=== PATIENT | female | born 1930 | race American Indian/Alaskan Native ===

== ENCOUNTER 2017-05-07 15:46 | Inpatient (IN) | payer MEDICARE ==
[2017-05-07] MEDS ORDERED: NACL 0.9% 500 ML 500 ML IV ONE (17:35)
[2017-05-07] MEDS ORDERED: ATIVAN ONE (17:42)
[2017-05-07] MEDS ORDERED: ATIVAN IV ONE ×2 (17:50→17:52)
[2017-05-07] MEDS ORDERED: VANCOMYCIN PHARMACY TO DOSE IV SCH (18:00)
[2017-05-07 18:16] LABS: Basophils % (Auto) 0.3 % (0.0-1.8); Mean Corpuscular HGB Conc 30 % (30-34); Mean Corpuscular Hemoglobin 27 pg (28-32); Mean Corpuscular Volume 92 fl (79-97); Platelet Count 125 K/mm3 (140-440); Red Blood Count 5.34 M/mm3 (3.65-5.03); Red Cell Distribution Width 17.5 % (13.2-15.2); White Blood Count 13.3 K/mm3 (4.5-11.0)
[2017-05-07 18:20] LABS: Hematocrit 49.2 % (30.3-42.9); Hemoglobin 14.5 gm/dl (10.1-14.3)
[2017-05-07 18:26] LABS: INR 1.21 (0.87-1.13)
[2017-05-07 18:27] LABS: Creatine Kinase MB 6.8 ng/mL (0.0-4.0)
[2017-05-07 18:27] LABS: Partial Thromboplastin Time 35.6 Sec. (24.2-36.6)
[2017-05-07 18:30] LABS: Alanine Aminotransferase 27 units/L (7-56); Albumin 3.4 g/dL (3.9-5); Albumin/Globulin Ratio 1.1 %; Alkaline Phosphatase 99 units/L (35-129); BUN/Creatinine Ratio 27; Blood Urea Nitrogen 72 mg/dL (7-17); Calcium 7.9 mg/dL (8.4-10.2); Carbon Dioxide 22 mmol/L (22-30); Creatine Kinase 1235 units/L (30-135); Glucose 124 mg/dL (65-100); Potassium 4.6 mmol/L (3.6-5.0); Total Protein 6.4 g/dL (6.3-8.2)
[2017-05-07] MEDS ORDERED: NACL 0.9% 1000 ML 1,000 ML ONE (18:33)
[2017-05-07] MEDS ORDERED: XYLOCAINE 1% 20 mL ONE (18:33)
[2017-05-07 18:36] LABS: Bilirubin,Direct < 0.2 mg/dL (0-0.2); Bilirubin,Indirect 0.3 mg/dL
[2017-05-07 18:44] LABS: Cholesterol 158 mg/dL (50-199); HDL Cholesterol 29 mg/dL (40-59); LDL Cholesterol,Direct 87 mg/dL (50-130); Triglycerides 213 mg/dL (2-149)
[2017-05-07] MEDS ORDERED: NACL 0.9% 1000 ML 1,000 ML IV ONE ×3 (18:50→21:13)
[2017-05-07 18:55] LABS: Anion Gap 23 mmol/L
--- NOTE | 2017-05-07 18:57 | Emergency Department Report ---
ED General Adult HPI - General Chief complaint: Dyspnea/Respdistress Stated complaint: YAIMA,DECREASED APPETITE Time Seen by Provider: 05/07/17 17:49 Source: EMS Mode of arrival: Stretcher Limitations: Altered Mental Status - History of Present Illness Initial comments: The patient was encountered by me shortly after the medics placed her in the gurney and the nurses summoned me. The medics have left without giving me a report. The report I have from nursing is that the patient was found poorly responsive. [facility] staff attempted to get a pulse oximetry and could not. Therefore they called EMS. Reported blood pressure per EMS was normotensive. The glucose was normal and the pulse oximetry was difficult to obtain. Apparently no one noted how cold the patient's extremities were. -: unknown Severity scale (0 -10): 0 - Related Data Home Medications Medication Instructions Recorded Confirmed Last Taken Acetaminophen/Diphenhydramine 1 each PO Q8H PRN 05/07/17 05/07/17 Unknown [Tylenol Pm Ex-Strength Caplet] Aspirin [Aspirin BABY CHEW TAB] 81 mg PO QDAY 05/07/17 05/07/17 Unknown Donepezil [Aricept] 10 mg PO QDAY 05/07/17 05/07/17 Unknown Hydrocortisone 1% [Hydrocortisone 1 applicatio TP TID 05/07/17 05/07/17 Unknown 1% CREAM] Multivit with Minerals No.55 1 each PO QDAY 05/07/17 05/07/17 Unknown [Centrum Flavor Burst Adult] Potassium Chloride [K-Dur] 10 meq PO QDAY 05/07/17 05/07/17 Unknown Allergies Allergy/AdvReac Type Severity Reaction Status Date / Time No Known Allergies Allergy Unverified 05/07/17 18:15 ED Review of Systems ROS: Stated complaint: YAIMA,DECREASED APPETITE Other details as noted in HPI Comment: Unobtainable due to pts medical conditions ED Past Medical Hx - Past Medical History Hx Psychiatric Treatment: (alzheimers) Additional medical history: Full code status - Social History Other Social History: [facility] - Medications Home Medications: Home Medications Medication Instructions Recorded Confirmed Last Taken Type Acetaminophen/Diphenhydramine 1 each PO Q8H PRN 05/07/17 05/07/17 Unknown History [Tylenol Pm Ex-Strength Caplet] Aspirin [Aspirin BABY CHEW TAB] 81 mg PO QDAY 05/07/17 05/07/17 Unknown History Donepezil [Aricept] 10 mg PO QDAY 05/07/17 05/07/17 Unknown History Hydrocortisone 1% [Hydrocortisone 1 applicatio TP TID 05/07/17 05/07/17 Unknown History 1% CREAM] Multivit with Minerals No.55 1 each PO QDAY 05/07/17 05/07/17 Unknown History [Centrum Flavor Burst Adult] Potassium Chloride [K-Dur] 10 meq PO QDAY 05/07/17 05/07/17 Unknown History ED Physical Exam - General Limitations: Altered Mental Status (non-verbal) General appearance: lethargic, obese - Head Head exam: Present: atraumatic - Eye Eye exam: Present: PERRL, EOMI. Absent: scleral icterus - ENT ENT exam: Present: mucous membranes dry - Neck Neck exam: Absent: tenderness, meningismus - Respiratory Respiratory exam: Present: normal lung sounds bilaterally. Absent: respiratory distress - Cardiovascular Cardiovascular Exam: Present: regular rate, normal rhythm. Absent: systolic murmur, diastolic murmur, rubs, gallop - GI/Abdominal GI/Abdominal exam: Present: soft, normal bowel sounds. Absent: distended, tenderness, guarding, rebound, rigid - Neurological Exam Neurological exam: Present: other (patient appears to be moving all extremities but she is obtunded and the exam is limited.) - Psychiatric Psychiatric exam: Present: flat affect - Skin Skin exam: Present: other (extremities are quite cool and vasoconstricted feet are particularly cool and somewhat cyanotic.) ED Course Vital Signs 05/07/17 05/07/17 17:17 18:41 Respiratory 12 Rate Blood Pressure 89/39 O2 Sat by Pulse 98 Oximetry - Reevaluation(s) Reevaluation #1: The patient was given a fluid bolus. She appeared to be perking up with IV fluid. A rectal temp was ordered. I am expecting her to be hypothermic. She is presumed to be septic. She was given empiric antibiotics to include Zosyn and Vanco. Her electrolytes were extremely abnormal. A repeat BMP is ordered. However the labs were drawn from a central line and the patient is quite volume depleted. I could certainly believe she is hyper knee treatment. We will see what her labs are on repeat. She will be admitted to the ICU. She will be given volume bolus of 2 L for presumed sepsis. A central line was placed shortly after the patient's arrival without difficulty. I'm still waiting her rectal temperature. She'll be placed on a hypothermia blanket as appropriate. Dr. Peralta the hospitalist is already seeing the patient. Consult to Dr. Woodruff the cloth shearer. On reexamination the patient's feet have warmed up and improved in color. Her blood pressure is 95/60. The second liter is in progress. She has a central line for pressors as necessary. She is maintaining her airway fine. Arterial blood gas has been ordered. 05/07/17 19:04 05/07/17 19:08 - Central Line Placement Right Femoral Consent Obtained: emergent situation Time Out Performed: No Patient Placed on Monitor/Pulse Ox: Yes Prep: mask, gown, gloves, other Central Line Prep: Chlorhexidine scrub Local Anesthesia Used: Lidocaine 1% Ultrasound Used for Placement: No Central Line Lumen Inserted: triple (placed without difficulty right femoral vein) Bloods Obtained for Lab: Yes Central Line Position: good blood return (dark red nonpulsatile), all ports aspirated, flus, sutured in place with 3-0, other Dressing Applied: Tegaderm Patient Tolerated Procedure: well ED Medical Decision Making - Lab Data Result diagrams: 05/07/17 17:35 05/07/17 17:50 Laboratory Results - last 24 hr 05/07/17 05/07/17 05/07/17 17:35 17:35 17:50 WBC 13.3 H RBC 5.34 H Hgb 14.5 H Hct 49.2 H MCV 92 MCH 27 L MCHC 30 RDW 17.5 H Plt Count 125 L Lymph % (Auto) 8.0 L Nelson % (Auto) 4.5 Eos % (Auto) 0.0 Baso % (Auto) 0.3 Lymph # 1.1 L Nelson # 0.6 Eos # 0.0 Baso # 0.0 Seg Neutrophils % 87.2 H Seg Neutrophils # 11.6 H PT 16.0 H INR 1.21 H APTT 35.6 Potassium 4.6 Carbon Dioxide 22 BUN 72 H Creatinine 2.7 H Estimated GFR 20 BUN/Creatinine Ratio 27 Glucose 124 H Calcium 7.9 L Magnesium 3.60 H Total Bilirubin 0.50 Direct Bilirubin < 0.2 Indirect Bilirubin 0.3 AST 29 ALT 27 Alkaline Phosphatase 99 Total Creatine Kinase 1235 H CK-MB (CK-2) 6.8 H CK-MB (CK-2) Rel Index 0.5 Troponin T 0.049 H NT-Pro-B Natriuret Pep 237.5 Total Protein 6.4 Albumin 3.4 L Albumin/Globulin Ratio 1.1 Triglycerides 213 H Cholesterol 158 LDL Cholesterol Direct 87 HDL Cholesterol 29 L Cholesterol/HDL Ratio 5.44 NA >179 CL >139, AG >123 lactic acid 3.4 - EKG Data -: EKG Interpreted by Me EKG shows normal: sinus rhythm Rate: normal - EKG Data Interpretation: other (left axis deviation and nonspecific ST-T wave changes.) - Radiology Data interpreted by me: Chest x-ray with some atelectasis right lower lobe. Otherwise no substantial findings Critical Care Time: Yes Critical care time in (mins) excluding proc time.: 75 Critical care attestation.: If time is entered above; I have spent that time in minutes in the direct care of this critically ill patient, excluding procedure time. ED Disposition Clinical Impression: Septic shock, Prerenal azotemia, Acute renal injury, Thrombocytopenia, Hypernatremia Rhabdomyolysis Qualifiers: Rhabdomyolysis type: non-traumatic Qualified Code(s): M62.82 - Rhabdomyolysis Disposition: DC-09 OP ADMIT IP TO THIS HOSP Is pt being admited?: Yes Does the pt Need Aspirin: Yes Condition: Stable Referrals: PRIMARY CARE, [Primary Care Provider] - 3-5 Days Time of Disposition: 19:13
[2017-05-07] MEDS ORDERED: ZOSYN/NS 4.5GM/100ML 4.5 GM/100 ML VIAL IV ONE (18:58)
[2017-05-07] MEDS ORDERED: ZOSYN/NS 4.5GM/100ML 4.5 GM/100 ML VIAL IV SCH (19:00)
[2017-05-07 19:05] LABS: Sodium > 179 mmol/L (137-145)
[2017-05-07 19:06] LABS: Chloride > 139 mmol/L (98-107)
--- NOTE | 2017-05-07 19:09 | History and Physical Report ---
History of Present Illness Date of examination: 05/07/17 Chief complaint: Altered Mental Status History of present illness: 87-year-old -Martiniquais female is brought via EMS from [facility] for altered mental status. Patient is noncommunicative and was in the room, the history is obtained from ER medical staff and chart review. Patient was hypotensive and hypothermic and central line was placed, started for the management of severe sepsis. Patient's sodium and chloride elevated. Review of systems couldn't be obtained because of mental status. Past History Past Medical History: other (couldn't obtain because of altered mental status, could be her baseline) Past Surgical History: Other (couldn't obtain because of altered mental status, could be her baseline) Social history: other (couldn't obtain because of altered mental status, could be her baseline) Family history: other (couldn't obtain because of altered mental status, could be her baseline) Medications and Allergies Allergies Allergy/AdvReac Type Severity Reaction Status Date / Time No Known Allergies Allergy Unverified 05/07/17 18:15 Home Medications Medication Instructions Recorded Confirmed Last Taken Type Acetaminophen/Diphenhydramine 1 each PO Q8H PRN 05/07/17 05/07/17 Unknown History [Tylenol Pm Ex-Strength Caplet] Aspirin [Aspirin BABY CHEW TAB] 81 mg PO QDAY 05/07/17 05/07/17 Unknown History Donepezil [Aricept] 10 mg PO QDAY 05/07/17 05/07/17 Unknown History Hydrocortisone 1% [Hydrocortisone 1 applicatio TP TID 05/07/17 05/07/17 Unknown History 1% CREAM] Multivit with Minerals No.55 1 each PO QDAY 05/07/17 05/07/17 Unknown History [Centrum Flavor Burst Adult] Potassium Chloride [K-Dur] 10 meq PO QDAY 05/07/17 05/07/17 Unknown History Active Meds: Active Medications Piperacillin Sod/Tazobactam Sod (Zosyn/Ns 4.5gm/100ml) 4.5 gm in 100 mls @ 200 mls/hr IV ONCE.ED ONE Stop: 05/07/17 19:27 Sodium Chloride (Nacl 0.9% 1000 Ml) 1,000 mls @ 999 mls/hr IV BOLUS ONE Stop: 05/07/17 19:50 Piperacillin Sod/Tazobactam Sod (Zosyn/Ns 4.5gm/100ml) 4.5 gm in 100 mls @ 200 mls/hr IV Q6HR CAMI PRN Reason: Protocol Vancomycin HCl (Vancomycin Pharmacy To Dose) 1 each IV PKCONSULT CAMI PRN Reason: Protocol Review of Systems ROS unobtainable: due to mental status (couldn't obtain because of altered mental status, could be her baseline) Exam - Physical Exam Narrative exam: Not in cardiopulmonary distress. The patient is obese. Vital signs as documented. Head exam is unremarkable. No scleral icterus . Neck is without jugular venous distension, thyromegaly, or carotid bruits. Lungs are clear to auscultation. Cardiac exam reveals regular rate and Rhythm. First and second heart sounds normal. No murmurs, rubs or gallops. Abdominal exam reveals normal bowel sounds, no masses, no organomegaly and no aortic enlargement. Extremities are nonedematous and both femoral and pedal pulses are normal. HEALTH SCIENCE WRITER: Patient is not communicative, could be her baseline dementia. - Constitutional Vitals: Temp Pulse Resp BP Pulse Ox 12 89/39 98 05/07/17 18:41 05/07/17 17:17 05/07/17 18:41 Results - Labs CBC & Chem 7: 05/07/17 17:35 05/07/17 17:50 Labs: Laboratory Last Values WBC 13.3 K/mm3 (4.5-11.0) H 05/07/17 17:35 RBC 5.34 M/mm3 (3.65-5.03) H 05/07/17 17:35 Hgb 14.5 gm/dl (10.1-14.3) H 05/07/17 17:35 Hct 49.2 % (30.3-42.9) H 05/07/17 17:35 MCV 92 fl (79-97) 05/07/17 17:35 MCH 27 pg (28-32) L 05/07/17 17:35 MCHC 30 % (30-34) 05/07/17 17:35 RDW 17.5 % (13.2-15.2) H 05/07/17 17:35 Plt Count 125 K/mm3 (140-440) L 05/07/17 17:35 Lymph % (Auto) 8.0 % (13.4-35.0) L 05/07/17 17:35 Wallace % (Auto) 4.5 % (0.0-7.3) 05/07/17 17:35 Eos % (Auto) 0.0 % (0.0-4.3) 05/07/17 17:35 Baso % (Auto) 0.3 % (0.0-1.8) 05/07/17 17:35 Lymph # 1.1 K/mm3 (1.2-5.4) L 05/07/17 17:35 Wallace # 0.6 K/mm3 (0.0-0.8) 05/07/17 17:35 Eos # 0.0 K/mm3 (0.0-0.4) 05/07/17 17:35 Baso # 0.0 K/mm3 (0.0-0.1) 05/07/17 17:35 Seg Neutrophils % 87.2 % (40.0-70.0) H 05/07/17 17:35 Seg Neutrophils # 11.6 K/mm3 (1.8-7.7) H 05/07/17 17:35 PT 16.0 Sec. (12.2-14.9) H 05/07/17 17:35 INR 1.21 (0.87-1.13) H 05/07/17 17:35 APTT 35.6 Sec. (24.2-36.6) 05/07/17 17:35 Sodium > 179 mmol/L (137-145) H* 05/07/17 17:50 Potassium 4.6 mmol/L (3.6-5.0) 05/07/17 17:50 Chloride > 139 mmol/L (98-107) H 05/07/17 17:50 Carbon Dioxide 22 mmol/L (22-30) 05/07/17 17:50 Anion Gap 23 mmol/L 05/07/17 17:50 BUN 72 mg/dL (7-17) H 05/07/17 17:50 Creatinine 2.7 mg/dL (0.7-1.2) H 05/07/17 17:50 Estimated GFR 20 ml/min 05/07/17 17:50 BUN/Creatinine Ratio 27 % 05/07/17 17:50 Glucose 124 mg/dL (65-100) H 05/07/17 17:50 Calcium 7.9 mg/dL (8.4-10.2) L 05/07/17 17:50 Magnesium 3.60 mg/dL (1.7-2.3) H 05/07/17 17:50 Total Bilirubin 0.50 mg/dL (0.1-1.2) 05/07/17 17:50 Direct Bilirubin < 0.2 mg/dL (0-0.2) 05/07/17 17:50 Indirect Bilirubin 0.3 mg/dL 05/07/17 17:50 AST 29 units/L (5-40) 05/07/17 17:50 ALT 27 units/L (7-56) 05/07/17 17:50 Alkaline Phosphatase 99 units/L (35-129) 05/07/17 17:50 Total Creatine Kinase 1235 units/L (30-135) H 05/07/17 17:50 CK-MB (CK-2) 6.8 ng/mL (0.0-4.0) H 05/07/17 17:50 CK-MB (CK-2) Rel Index 0.5 (0-4) 05/07/17 17:50 Troponin T 0.049 ng/mL (0.00-0.029) H 05/07/17 17:50 NT-Pro-B Natriuret Pep 237.5 pg/mL (0-900) 05/07/17 17:50 Total Protein 6.4 g/dL (6.3-8.2) 05/07/17 17:50 Albumin 3.4 g/dL (3.9-5) L 05/07/17 17:50 Albumin/Globulin Ratio 1.1 % 05/07/17 17:50 Triglycerides 213 mg/dL (2-149) H 05/07/17 17:50 Cholesterol 158 mg/dL (50-199) 05/07/17 17:50 LDL Cholesterol Direct 87 mg/dL (50-130) 05/07/17 17:50 HDL Cholesterol 29 mg/dL (40-59) L 05/07/17 17:50 Cholesterol/HDL Ratio 5.44 % 05/07/17 17:50 Assessment and Plan Assessment and plan: 89 year old female came from [facility] for altered mental status, no history obtained Altered mental status Severe sepsis Hypotension Hypernatremia, hyperchloremia Severe Dehydration Dementia Acute renal failure, no baseline - Intubated and was placed and patient was given IV fluids and IV antibiotics according to sepsis protocol - Blood culture was obtained, lactic acid result pending - Patient able to take care of her airways - We will check BMP every 6 hours to monitor hypernatremia and hyperchloremia - Salesperson Neckties consulted DVT prophylaxis - on heparin Disposition - Admit to ICU Advance Directives: Yes VTE prophylaxis?: Chemical Plan of care discussed with patient/family: Yes
[2017-05-07 20:12] LABS: Bacteria,Urine 4+ /HPF (Negative); Bilirubin,Urine NEG (Negative); Blood,Urine SM (Negative); Ketones,Urine NEG (Negative); Leukocyte Esterase,Urine MOD (Negative); Mucus,Urine 3+ /HPF; Nitrite,Urine NEG (Negative); Urobilinogen,Urine < 2.0 mg/dL (<2.0)
[2017-05-07 20:19] LABS: RBC,Urine > 182.0 /HPF (0.0-6.0); WBC,Urine > 182.0 /HPF (0.0-6.0)
[2017-05-07] MEDS ORDERED: LEVOPHED DRIP 4 MG/NS 250 ML 4 MG/250 ML BAG IV SCH (21:00)
[2017-05-07 21:03] LABS: Chloride TNR mmol/L (98-107)
[2017-05-07 21:04] LABS: Sodium TNR mmol/L (137-145)
[2017-05-07 21:07] LABS: Anion Gap TNR mmol/L
[2017-05-07 21:14] LABS: Potassium TNR mmol/L (3.6-5.0)
[2017-05-07 21:15] LABS: Blood Urea Nitrogen TNR mg/dL (7-17); Carbon Dioxide TNR mmol/L (22-30)
[2017-05-07 21:17] LABS: BUN/Creatinine Ratio TNR; Glucose TNR mg/dL (65-100)
[2017-05-07 21:18] LABS: Calcium TNR mg/dL (8.4-10.2)
[2017-05-07] MEDS ORDERED: VANCOMYCIN 2,000 MG in NACL 0.9% 500 ML 500 ML IV ONE (22:00)
[2017-05-07] MEDS ORDERED: NACL 0.9% 1000 ML 1,000 ML IV SCH (22:00)
[2017-05-07] MEDS: ZOSYN/NS 2.25 GM/50ML 2.25 GM/50 ML BAG IV SCH (22:29)
[2017-05-07] MEDS: HEPARIN SUB-Q SCH (22:40)
[2017-05-07 23:07] LABS: Sodium TNR mmol/L (137-145)
[2017-05-07 23:10] LABS: Anion Gap TNR mmol/L; Blood Urea Nitrogen TNR mg/dL (7-17); Carbon Dioxide TNR mmol/L (22-30); Chloride TNR mmol/L (98-107); Potassium TNR mmol/L (3.6-5.0)
[2017-05-07 23:11] LABS: BUN/Creatinine Ratio TNR; Glucose TNR mg/dL (65-100)
[2017-05-07 23:12] LABS: Calcium TNR mg/dL (8.4-10.2)
[2017-05-08] MEDS ORDERED: D5/0.45NS 1,000 ML IV SCH (01:00)
[2017-05-08] MEDS: D5W 1,000 ML IV SCH ×3 (01:20→18:14)
[2017-05-08 01:22] LABS: ISTAT Base Excess -7; ISTAT DEVICE 0; ISTAT HCO3 19.6; ISTAT PH 7.308 (7.35-7.45); ISTAT PO2 87 (80-105); ISTAT SO2 96; ISTAT TCO2 21
[2017-05-08 05:35] LABS: Basophils % (Auto) 0.4 % (0.0-1.8); Eosinophils % (Auto) 0.2 % (0.0-4.3); Mean Corpuscular HGB Conc 29 % (30-34); Mean Corpuscular Hemoglobin 27 pg (28-32); Mean Corpuscular Volume 92 fl (79-97); Red Blood Count 4.69 M/mm3 (3.65-5.03); Red Cell Distribution Width 17.5 % (13.2-15.2); White Blood Count 12.5 K/mm3 (4.5-11.0)
[2017-05-08 05:49] LABS: Hematocrit 43.2 % (30.3-42.9); Hemoglobin 12.7 gm/dl (10.1-14.3); Platelet Count 99 K/mm3 (140-440)
[2017-05-08 05:51] LABS: INR 1.28 (0.87-1.13)
[2017-05-08 05:57] LABS: Alanine Aminotransferase 24 units/L (7-56); Albumin/Globulin Ratio 1.2 %; Alkaline Phosphatase 86 units/L (35-129); Amylase 26 units/L (27-131); BUN/Creatinine Ratio 26; Blood Urea Nitrogen 58 mg/dL (7-17); Calcium 6.7 mg/dL (8.4-10.2); Carbon Dioxide 20 mmol/L (22-30); Glucose 162 mg/dL (65-100); Potassium 3.7 mmol/L (3.6-5.0); Total Protein 5.5 g/dL (6.3-8.2)
[2017-05-08] MEDS: ZOSYN/NS 2.25 GM/50ML 2.25 GM/50 ML BAG IV SCH ×3 (06:05→22:46)
[2017-05-08 06:34] LABS: Sodium > 179 mmol/L (137-145)
[2017-05-08 06:35] LABS: Anion Gap 24 mmol/L; Chloride > 139 mmol/L (98-107)
--- NOTE | 2017-05-08 08:06 | XRay Report ---
Chest 2 views. History: Cough and fever. Findings: There is suboptimal inspiration. The heart and pulmonary vessels are unremarkable for age. Minimal discoid atelectasis is seen in the right lower lobe; otherwise, lungs are clear. There is no pleural fluid. Impression: Minimal right lower lobe discoid atelectasis no other significant findings.
[2017-05-08] MEDS: HEPARIN SUB-Q SCH ×2 (09:34→22:23)
--- NOTE | 2017-05-08 10:04 | Consultation ---
History of Present Illness - Reason for Consult Consult date: 05/08/17 Hypernatremia/Hypotension/Severe Volume Depletion Requesting physician: JENNIFER MOORE - History of Present Illness 87 y/o female, [facility] resident, who presented to the ED with altered mental state. We have no idea of what her baseline mental state is. She was hypotensive on arrival. Central line placed and started on pressors. Labs came back and patient is severely volume deplete. Free water defict is around 10 liters. No family currently at bedside. Patient is awake, but not responsive. Does not follow commands. She was started on D5W and has Chemistries being drawn every 6 hours. She has a urine analysis that is dirty. She was started on Vanc and Zosyn empirically. Past History Past Medical History: other (couldn't obtain because of altered mental status, could be her baseline) Past Surgical History: Other (couldn't obtain because of altered mental status, could be her baseline) Social history: other (couldn't obtain because of altered mental status, could be her baseline) Family history: other (couldn't obtain because of altered mental status, could be her baseline) Medications and Allergies Allergies Allergy/AdvReac Type Severity Reaction Status Date / Time No Known Allergies Allergy Unverified 05/07/17 18:15 Home Medications Medication Instructions Recorded Confirmed Last Taken Type Acetaminophen/Diphenhydramine 1 each PO Q8H PRN 05/07/17 05/07/17 Unknown History [Tylenol Pm Ex-Strength Caplet] Aspirin [Aspirin BABY CHEW TAB] 81 mg PO QDAY 05/07/17 05/07/17 Unknown History Donepezil [Aricept] 10 mg PO QDAY 05/07/17 05/07/17 Unknown History Hydrocortisone 1% [Hydrocortisone 1 applicatio TP TID 05/07/17 05/07/17 Unknown History 1% CREAM] Multivit with Minerals No.55 1 each PO QDAY 05/07/17 05/07/17 Unknown History [Centrum Flavor Burst Adult] Potassium Chloride [K-Dur] 10 meq PO QDAY 05/07/17 05/07/17 Unknown History Active Meds: Active Medications Heparin Sodium (Porcine) (Heparin) 5,000 unit SUB-Q BID CAMI Last Admin: 05/08/17 09:34 Dose: 5,000 unit Norepinephrine (Levophed Drip 4 Mg/Ns 250 Ml) 4 mg in 250 mls @ 7.5 mls/hr IV TITR CAMI; 2 MCG/MIN PRN Reason: Protocol Last Titration: 05/08/17 02:24 Dose: 4 mcg/min, 15 mls/hr Piperacillin Sod/Tazobactam Sod (Zosyn/Ns 2.25 Gm/50ml) 2.25 gm in 50 mls @ 100 mls/hr IV Q8HR CAMI Last Admin: 05/08/17 06:05 Dose: 100 mls/hr Dextrose (D5w) 1,000 mls @ 100 mls/hr IV DIRECT CAMI Last Admin: 05/08/17 01:20 Dose: 100 mls/hr Review of Systems ROS unobtainable: due to mental status Exam - Constitutional Vitals: Temp Pulse Resp BP Pulse Ox 99.3 F 69 14 101/53 98 05/08/17 08:00 05/08/17 09:00 05/08/17 09:00 05/08/17 09:00 05/08/17 09:00 General appearance: Present: no acute distress, obese - Neck Neck: Present: supple, normal ROM - Respiratory Respiratory effort: normal Respiratory: bilateral: CTA - Cardiovascular Rhythm: regular Heart Sounds: Present: S1 & S2 - Extremities Extremities: no ischemia - Abdominal General gastrointestinal: Present: soft, non-tender, normal bowel sounds - Rectal Rectal Exam: deferred - Psychiatric Psychiatric: other (unable to assess) - Neurologic Neurologic: other (unable to assess) Results - Labs CBC & Chem 7: 05/08/17 05:18 05/08/17 09:30 Labs: Abnormal lab results 05/07/17 05/07/17 05/07/17 Range/Units 17:35 17:35 17:50 WBC 13.3 H (4.5-11.0) K/mm3 RBC 5.34 H (3.65-5.03) M/mm3 Hgb 14.5 H (10.1-14.3) gm/dl Hct 49.2 H (30.3-42.9) % MCH 27 L (28-32) pg MCHC (30-34) % RDW 17.5 H (13.2-15.2) % Plt Count 125 L (140-440) K/mm3 Lymph % (Auto) 8.0 L (13.4-35.0) % Lymph # 1.1 L (1.2-5.4) K/mm3 Seg Neutrophils % 87.2 H (40.0-70.0) % Seg Neutrophils # 11.6 H (1.8-7.7) K/mm3 PT 16.0 H (12.2-14.9) Sec. INR 1.21 H (0.87-1.13) POC ABG pH (7.35-7.45) Sodium > 179 H* (137-145) mmol/L Chloride > 139 H (98-107) mmol/L Carbon Dioxide (22-30) mmol/L BUN 72 H (7-17) mg/dL Creatinine 2.7 H (0.7-1.2) mg/dL Glucose 124 H (65-100) mg/dL POC Glucose (70-105) Lactic Acid (0.7-2.0) mmol/L Calcium 7.9 L (8.4-10.2) mg/dL Magnesium 3.60 H (1.7-2.3) mg/dL AST (5-40) units/L Total Creatine Kinase 1235 H (30-135) units/L CK-MB (CK-2) 6.8 H (0.0-4.0) ng/mL Troponin T 0.049 H (0.00-0.029) ng/mL Total Protein (6.3-8.2) g/dL Albumin 3.4 L (3.9-5) g/dL Triglycerides 213 H (2-149) mg/dL HDL Cholesterol 29 L (40-59) mg/dL Amylase (27-131) units/L Urine WBC (Auto) (0.0-6.0) /HPF 05/07/17 05/07/17 05/07/17 Range/Units 19:18 20:59 23:40 WBC (4.5-11.0) K/mm3 RBC (3.65-5.03) M/mm3 Hgb (10.1-14.3) gm/dl Hct (30.3-42.9) % MCH (28-32) pg MCHC (30-34) % RDW (13.2-15.2) % Plt Count (140-440) K/mm3 Lymph % (Auto) (13.4-35.0) % Lymph # (1.2-5.4) K/mm3 Seg Neutrophils % (40.0-70.0) % Seg Neutrophils # (1.8-7.7) K/mm3 PT (12.2-14.9) Sec. INR (0.87-1.13) POC ABG pH (7.35-7.45) Sodium > 179 H* (137-145) mmol/L Chloride (98-107) mmol/L Carbon Dioxide (22-30) mmol/L BUN (7-17) mg/dL Creatinine (0.7-1.2) mg/dL Glucose (65-100) mg/dL POC Glucose (70-105) Lactic Acid 2.20 H* (0.7-2.0) mmol/L Calcium (8.4-10.2) mg/dL Magnesium (1.7-2.3) mg/dL AST (5-40) units/L Total Creatine Kinase (30-135) units/L CK-MB (CK-2) (0.0-4.0) ng/mL Troponin T (0.00-0.029) ng/mL Total Protein (6.3-8.2) g/dL Albumin (3.9-5) g/dL Triglycerides (2-149) mg/dL HDL Cholesterol (40-59) mg/dL Amylase (27-131) units/L Urine WBC (Auto) > 182.0 H (0.0-6.0) /HPF 05/07/17 05/07/17 05/08/17 Range/Units 23:44 Unknown 01:19 WBC (4.5-11.0) K/mm3 RBC (3.65-5.03) M/mm3 Hgb (10.1-14.3) gm/dl Hct (30.3-42.9) % MCH (28-32) pg MCHC (30-34) % RDW (13.2-15.2) % Plt Count (140-440) K/mm3 Lymph % (Auto) (13.4-35.0) % Lymph # (1.2-5.4) K/mm3 Seg Neutrophils % (40.0-70.0) % Seg Neutrophils # (1.8-7.7) K/mm3 PT (12.2-14.9) Sec. INR (0.87-1.13) POC ABG pH 7.308 L (7.35-7.45) Sodium (137-145) mmol/L Chloride (98-107) mmol/L Carbon Dioxide (22-30) mmol/L BUN (7-17) mg/dL Creatinine (0.7-1.2) mg/dL Glucose (65-100) mg/dL POC Glucose 121 H (70-105) Lactic Acid 3.40 H* (0.7-2.0) mmol/L Calcium (8.4-10.2) mg/dL Magnesium (1.7-2.3) mg/dL AST (5-40) units/L Total Creatine Kinase (30-135) units/L CK-MB (CK-2) (0.0-4.0) ng/mL Troponin T (0.00-0.029) ng/mL Total Protein (6.3-8.2) g/dL Albumin (3.9-5) g/dL Triglycerides (2-149) mg/dL HDL Cholesterol (40-59) mg/dL Amylase (27-131) units/L Urine WBC (Auto) (0.0-6.0) /HPF 05/08/17 05/08/17 05/08/17 Range/Units 05:18 05:18 05:18 WBC 12.5 H (4.5-11.0) K/mm3 RBC (3.65-5.03) M/mm3 Hgb (10.1-14.3) gm/dl Hct 43.2 H D (30.3-42.9) % MCH 27 L (28-32) pg MCHC 29 L (30-34) % RDW 17.5 H (13.2-15.2) % Plt Count 99 L (140-440) K/mm3 Lymph % (Auto) 11.1 L (13.4-35.0) % Lymph # (1.2-5.4) K/mm3 Seg Neutrophils % 84.4 H (40.0-70.0) % Seg Neutrophils # 10.5 H (1.8-7.7) K/mm3 PT 16.7 H (12.2-14.9) Sec. INR 1.28 H (0.87-1.13) POC ABG pH (7.35-7.45) Sodium > 179 H* (137-145) mmol/L Chloride > 139 H (98-107) mmol/L Carbon Dioxide 20 L (22-30) mmol/L BUN 58 H (7-17) mg/dL Creatinine 2.2 H (0.7-1.2) mg/dL Glucose 162 H (65-100) mg/dL POC Glucose (70-105) Lactic Acid (0.7-2.0) mmol/L Calcium 6.7 L D (8.4-10.2) mg/dL Magnesium (1.7-2.3) mg/dL AST 42 H (5-40) units/L Total Creatine Kinase (30-135) units/L CK-MB (CK-2) (0.0-4.0) ng/mL Troponin T (0.00-0.029) ng/mL Total Protein 5.5 L (6.3-8.2) g/dL Albumin 3.0 L (3.9-5) g/dL Triglycerides (2-149) mg/dL HDL Cholesterol (40-59) mg/dL Amylase 26 L (27-131) units/L Urine WBC (Auto) (0.0-6.0) /HPF - Imaging and Cardiology Chest x-ray: report reviewed (clear) Assessment and Plan 87 y/o female with altered mental status, found to be severely volume deplete and possible urinary tract infection. 1. Increase rate on Free water 2. Will place dobb-kristian and start feeds with additional free water 3. q6hour chemistries and to follow up Na 4. Stop Vanc but continue Zosyn 5. Continue ICU monitoring, wean levophed for MAP's >65 CCt 31 minutes.
[2017-05-08 10:07] LABS: BUN/Creatinine Ratio 28; Blood Urea Nitrogen 56 mg/dL (7-17); Calcium 6.4 mg/dL (8.4-10.2); Carbon Dioxide 22 mmol/L (22-30); Glucose 167 mg/dL (65-100); Potassium 3.5 mmol/L (3.6-5.0)
[2017-05-08] MEDS ORDERED: PANCREAZE DR 10,500 UNIT FEEDTUBE PRN (10:50)
[2017-05-08] MEDS ORDERED: SODIUM BICARBONATE FEEDTUBE PRN (10:50)
[2017-05-08] MEDS ORDERED: SIMPLE SYRUP FEEDTUBE PRN ×2 (10:50)
[2017-05-08 11:00] LABS: Anion Gap 22 mmol/L; Chloride > 139 mmol/L (98-107); Sodium > 179 mmol/L (137-145)
--- NOTE | 2017-05-08 13:59 | XRay Report ---
KUB for Dobbhoff tube placement. Findings: A Dobbhoff tube terminates in the distal stomach. A right femoral catheter terminates at the level of the inferior right SI joint. There are no other significant findings.
[2017-05-08 16:18] LABS: BUN/Creatinine Ratio 26; Blood Urea Nitrogen 52 mg/dL (7-17); Calcium 6.4 mg/dL (8.4-10.2); Carbon Dioxide 21 mmol/L (22-30); Glucose 170 mg/dL (65-100); Potassium 3.3 mmol/L (3.6-5.0)
[2017-05-08 16:35] LABS: Anion Gap 17 mmol/L; Chloride > 139 mmol/L (98-107); Sodium 174 mmol/L (137-145)
[2017-05-08] MEDS: NOVOLOG SUB-Q SCH (17:32)
--- NOTE | 2017-05-08 18:08 | Progress Note ---
Assessment and Plan Assessment and plan: 87 year old female came from group home for altered mental status, no history obtained Acute metabolic encephalopathy Severe sepsis Hypotension Hypernatremia, hyperchloremia Severe Dehydration Dementia Acute renal failure, no baseline -Patient is on IV Zosyn -Urine culture shows gram-positive throats - Frequent check BMP for follow-up of hypernatremia, increase free water - Patient is on levophed DVT prophylaxis - on heparin Disposition -Continue ICU care History Interval history: Patient was seen and evaluated this morning, patient is non-communicative, could be her baseline. Hospitalist Physical - Physical exam Narrative exam: Not in cardiopulmonary distress. The patient is obese. Vital signs as documented. Head exam is unremarkable. No scleral icterus . Neck is without jugular venous distension, thyromegaly, or carotid bruits. Lungs are clear to auscultation. Cardiac exam reveals regular rate and Rhythm. First and second heart sounds normal. No murmurs, rubs or gallops. Abdominal exam reveals normal bowel sounds, no masses, no organomegaly and no aortic enlargement. Extremities are nonedematous and both femoral and pedal pulses are normal. 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 - Constitutional Vitals: Temp Pulse Resp BP Pulse Ox 97.3 F L 66 13 125/56 99 05/08/17 16:00 05/08/17 17:11 05/08/17 17:11 05/08/17 17:11 05/08/17 17:11 General appearance: Present: no acute distress, obese Results - Labs CBC & Chem 7: 05/08/17 05:18 05/08/17 15:45 Labs: Laboratory Last Values WBC 12.5 K/mm3 (4.5-11.0) H 05/08/17 05:18 RBC 4.69 M/mm3 (3.65-5.03) 05/08/17 05:18 Hgb 12.7 gm/dl (10.1-14.3) 05/08/17 05:18 Hct 43.2 % (30.3-42.9) H D 05/08/17 05:18 MCV 92 fl (79-97) 05/08/17 05:18 MCH 27 pg (28-32) L 05/08/17 05:18 MCHC 29 % (30-34) L 05/08/17 05:18 RDW 17.5 % (13.2-15.2) H 05/08/17 05:18 Plt Count 99 K/mm3 (140-440) L 05/08/17 05:18 Lymph % (Auto) 11.1 % (13.4-35.0) L 05/08/17 05:18 [place] % (Auto) 3.9 % (0.0-7.3) 05/08/17 05:18 Eos % (Auto) 0.2 % (0.0-4.3) 05/08/17 05:18 Baso % (Auto) 0.4 % (0.0-1.8) 05/08/17 05:18 Lymph # 1.4 K/mm3 (1.2-5.4) 05/08/17 05:18 [place] # 0.5 K/mm3 (0.0-0.8) 05/08/17 05:18 Eos # 0.0 K/mm3 (0.0-0.4) 05/08/17 05:18 Baso # 0.0 K/mm3 (0.0-0.1) 05/08/17 05:18 Seg Neutrophils % 84.4 % (40.0-70.0) H 05/08/17 05:18 Seg Neutrophils # 10.5 K/mm3 (1.8-7.7) H 05/08/17 05:18 PT 16.7 Sec. (12.2-14.9) H 05/08/17 05:18 INR 1.28 (0.87-1.13) H 05/08/17 05:18 APTT 35.6 Sec. (24.2-36.6) 05/07/17 17:35 POC ABG pH 7.308 (7.35-7.45) L 05/08/17 01:19 POC ABG pCO2 39.0 (35-45) 05/08/17 01:19 POC ABG pO2 87 (80-105) 05/08/17 01:19 POC ABG HCO3 19.6 05/08/17 01:19 POC ABG Total CO2 21 05/08/17 01:19 POC ABG O2 Sat 96 05/08/17 01:19 POC ABG Base Excess -7 05/08/17 01:19 FiO2 21 % 05/08/17 01:19 Sodium 174 mmol/L (137-145) H* 05/08/17 15:45 Potassium 3.3 mmol/L (3.6-5.0) L 05/08/17 15:45 Chloride > 139 mmol/L (98-107) H 05/08/17 15:45 Carbon Dioxide 21 mmol/L (22-30) L 05/08/17 15:45 Anion Gap 17 mmol/L 05/08/17 15:45 BUN 52 mg/dL (7-17) H 05/08/17 15:45 Creatinine 2.0 mg/dL (0.7-1.2) H 05/08/17 15:45 Estimated GFR 28 ml/min 05/08/17 15:45 BUN/Creatinine Ratio 26 % 05/08/17 15:45 Glucose 170 mg/dL (65-100) H 05/08/17 15:45 POC Glucose 151 (70-105) H 05/08/17 16:53 Lactic Acid 3.40 mmol/L (0.7-2.0) H* 05/07/17 Unknown Calcium 6.4 mg/dL (8.4-10.2) L 05/08/17 15:45 Magnesium 3.60 mg/dL (1.7-2.3) H 05/07/17 17:50 Total Bilirubin 0.50 mg/dL (0.1-1.2) 05/08/17 05:18 Direct Bilirubin < 0.2 mg/dL (0-0.2) 05/07/17 17:50 Indirect Bilirubin 0.3 mg/dL 05/07/17 17:50 AST 42 units/L (5-40) H 05/08/17 05:18 ALT 24 units/L (7-56) 05/08/17 05:18 Alkaline Phosphatase 86 units/L (35-129) 05/08/17 05:18 Total Creatine Kinase 1235 units/L (30-135) H 05/07/17 17:50 CK-MB (CK-2) 6.8 ng/mL (0.0-4.0) H 05/07/17 17:50 CK-MB (CK-2) Rel Index 0.5 (0-4) 05/07/17 17:50 Troponin T 0.049 ng/mL (0.00-0.029) H 05/07/17 17:50 NT-Pro-B Natriuret Pep 237.5 pg/mL (0-900) 05/07/17 17:50 Total Protein 5.5 g/dL (6.3-8.2) L 05/08/17 05:18 Albumin 3.0 g/dL (3.9-5) L 05/08/17 05:18 Albumin/Globulin Ratio 1.2 % 05/08/17 05:18 Triglycerides 213 mg/dL (2-149) H 05/07/17 17:50 Cholesterol 158 mg/dL (50-199) 05/07/17 17:50 LDL Cholesterol Direct 87 mg/dL (50-130) 05/07/17 17:50 HDL Cholesterol 29 mg/dL (40-59) L 05/07/17 17:50 Cholesterol/HDL Ratio 5.44 % 05/07/17 17:50 Amylase 26 units/L (27-131) L 05/08/17 05:18 Urine Color Straw (Yellow) 05/07/17 19:18 Urine Turbidity Turbid (Clear) 05/07/17 19:18 Urine pH 5.0 (5.0-7.0) 05/07/17 19:18 Ur Specific [place] 1.017 (1.003-1.030) 05/07/17 19:18 Urine Protein 100 mg/dl mg/dL (Negative) 05/07/17 19:18 Urine Glucose (UA) Neg mg/dL (Negative) 05/07/17 19:18 Urine Ketones Neg mg/dL (Negative) 05/07/17 19:18 Urine Blood Sm (Negative) 05/07/17 19:18 Urine Nitrite Neg (Negative) 05/07/17 19:18 Urine Bilirubin Neg (Negative) 05/07/17 19:18 Urine Urobilinogen < 2.0 mg/dL (<2.0) 05/07/17 19:18 Ur Leukocyte Esterase Mod (Negative) 05/07/17 19:18 Urine WBC (Auto) > 182.0 /HPF (0.0-6.0) H 05/07/17 19:18 Urine RBC (Auto) > 182.0 /HPF (0.0-6.0) 05/07/17 19:18 U Epithel Cells (Auto) 5.0 /HPF (0-13.0) 05/07/17 19:18 Urine Bacteria (Auto) 4+ /HPF (Negative) 05/07/17 19:18 Urine Mucus 3+ /HPF 05/07/17 19:18
[2017-05-08] MEDS ORDERED: POTASSIUM CHLORIDE FEEDTUBE ONE (18:30)
[2017-05-08 22:01] LABS: Calcium 6.3 mg/dL (8.4-10.2)
[2017-05-08 22:02] LABS: Chloride 134.8 mmol/L (98-107); Potassium 3.8 mmol/L (3.6-5.0)
[2017-05-09] MEDS: NOVOLOG SUB-Q SCH ×5 (00:59→17:50)
[2017-05-09] MEDS: D5W 1,000 ML IV SCH ×4 (01:36→21:39)
[2017-05-09 02:24] LABS: Calcium 6.3 mg/dL (8.4-10.2); Chloride 133.3 mmol/L (98-107); Potassium 3.4 mmol/L (3.6-5.0)
[2017-05-09 05:40] LABS: Basophils % (Auto) 0.3 % (0.0-1.8); Eosinophils % (Auto) 1.7 % (0.0-4.3); Hematocrit 35.2 % (30.3-42.9); Hemoglobin 10.9 gm/dl (10.1-14.3); Mean Corpuscular HGB Conc 31 % (30-34); Mean Corpuscular Hemoglobin 28 pg (28-32); Mean Corpuscular Volume 92 fl (79-97); Red Blood Count 3.84 M/mm3 (3.65-5.03); Red Cell Distribution Width 16.6 % (13.2-15.2); White Blood Count 9.6 K/mm3 (4.5-11.0)
[2017-05-09 05:44] LABS: Platelet Count 69 K/mm3 (140-440)
[2017-05-09] MEDS: ZOSYN/NS 2.25 GM/50ML 2.25 GM/50 ML BAG IV SCH (05:47)
[2017-05-09 06:03] LABS: Calcium 6.2 mg/dL (8.4-10.2); Chloride 132.7 mmol/L (98-107); Potassium 3.3 mmol/L (3.6-5.0)
[2017-05-09] MEDS ORDERED: POTASSIUM CHLORIDE FEEDTUBE ONE ×3 (09:00→23:00)
[2017-05-09] MEDS: HEPARIN SUB-Q SCH ×2 (09:33→21:41)
--- NOTE | 2017-05-09 10:52 | Progress Note ---
Assessment and Plan 87 y/o female with altered mental status, found to be severely volume deplete and possible urinary tract infection. 1. Continue Free water IV and via DH tube 2. continue tube feeds 3. q6hour chemistries and to follow up Na, need to continue until Na is closer to normal limits 4. Stop Vanc but continue Zosyn, UA is positive and culture has GNR CCt 31 minutes. Subjective Date of service: 05/09/17 Interval history: No acute events. Tolerated DH placement on yesterday and now tolerating tube feeds with free water. No family at bedside. Mental status is the same. Objective - Constitutional Vitals: Vital Signs - 12hr 05/08/17 05/08/17 05/08/17 22:51 23:01 23:11 Temperature Pulse Rate 64 67 66 Pulse Rate [ From Monitor] Pulse Rate [ Right Dorsalis Pedis] Respiratory 14 13 11 L Rate Blood Pressure 149/50 149/50 149/50 O2 Sat by Pulse 100 72 L 98 Oximetry 05/08/17 05/08/17 05/08/17 23:15 23:21 23:31 Temperature Pulse Rate 67 66 67 Pulse Rate [ From Monitor] Pulse Rate [ Right Dorsalis Pedis] Respiratory 15 14 15 Rate Blood Pressure 149/50 149/50 149/50 O2 Sat by Pulse 99 100 29 L Oximetry 05/08/17 05/08/17 05/09/17 23:41 23:51 00:00 Temperature 97.5 F L Pulse Rate 68 68 Pulse Rate [ From Monitor] Pulse Rate [ 70 Right Dorsalis Pedis] Respiratory 11 L 11 L Rate Blood Pressure 99/57 99/57 O2 Sat by Pulse 100 98 100 Oximetry 05/09/17 05/09/17 05/09/17 00:01 00:11 00:21 Temperature Pulse Rate 67 65 67 Pulse Rate [ From Monitor] Pulse Rate [ Right Dorsalis Pedis] Respiratory 13 14 11 L Rate Blood Pressure 114/55 114/55 114/55 O2 Sat by Pulse 99 100 100 Oximetry 05/09/17 05/09/17 05/09/17 00:31 00:41 00:44 Temperature 97.5 F L Pulse Rate 71 64 Pulse Rate [ From Monitor] Pulse Rate [ Right Dorsalis Pedis] Respiratory 12 13 Rate Blood Pressure 114/55 114/55 O2 Sat by Pulse 100 Oximetry 1205/09/17 05/09/17 00:51 01:01 01:11 Temperature Pulse Rate 70 66 66 Pulse Rate [ From Monitor] Pulse Rate [ Right Dorsalis Pedis] Respiratory 16 12 13 Rate Blood Pressure 114/55 78/44 78/44 O2 Sat by Pulse 100 100 100 Oximetry 05/09/17 05/09/17 05/09/17 01:21 01:31 01:41 Temperature Pulse Rate 68 63 62 Pulse Rate [ From Monitor] Pulse Rate [ Right Dorsalis Pedis] Respiratory 12 13 12 Rate Blood Pressure 78/44 78/44 100/40 O2 Sat by Pulse 100 99 100 Oximetry 05/09/17 05/09/17 05/09/17 01:51 02:01 02:11 Temperature Pulse Rate 66 67 65 Pulse Rate [ From Monitor] Pulse Rate [ Right Dorsalis Pedis] Respiratory 13 15 16 Rate Blood Pressure 100/40 100/40 171/146 O2 Sat by Pulse 100 100 98 Oximetry 05/09/17 05/09/17 05/09/17 02:21 02:31 02:41 Temperature Pulse Rate 65 63 62 Pulse Rate [ From Monitor] Pulse Rate [ Right Dorsalis Pedis] Respiratory 11 L 14 9 L Rate Blood Pressure 171/146 171/146 171/146 O2 Sat by Pulse 100 93 100 Oximetry 05/09/17 05/09/17 05/09/17 02:51 03:01 03:11 Temperature Pulse Rate 63 66 66 Pulse Rate [ From Monitor] Pulse Rate [ Right Dorsalis Pedis] Respiratory 15 15 13 Rate Blood Pressure 112/61 112/61 112/61 O2 Sat by Pulse 100 99 100 Oximetry 05/09/17 05/09/17 05/09/17 03:21 03:31 03:41 Temperature Pulse Rate 67 65 67 Pulse Rate [ From Monitor] Pulse Rate [ Right Dorsalis Pedis] Respiratory 16 15 17 Rate Blood Pressure 112/61 114/52 114/52 O2 Sat by Pulse 100 100 99 Oximetry 05/09/17 05/09/17 05/09/17 03:51 04:00 04:01 Temperature 97.6 F Pulse Rate 67 67 Pulse Rate [ From Monitor] Pulse Rate [ 59 L Right Dorsalis Pedis] Respiratory 14 15 Rate Blood Pressure 114/52 130/97 O2 Sat by Pulse 100 97 100 Oximetry 05/09/17 05/09/17 05/09/17 04:11 04:21 04:31 Temperature Pulse Rate 65 64 68 Pulse Rate [ From Monitor] Pulse Rate [ Right Dorsalis Pedis] Respiratory 14 14 17 Rate Blood Pressure 114/52 114/52 114/52 O2 Sat by Pulse 100 100 94 Oximetry 05/09/17 05/09/17 05/09/17 04:41 04:51 05:01 Temperature Pulse Rate 62 67 63 Pulse Rate [ From Monitor] Pulse Rate [ Right Dorsalis Pedis] Respiratory 14 13 12 Rate Blood Pressure 114/52 114/52 114/52 O2 Sat by Pulse 100 100 Oximetry 05/09/17 05/09/17 05/09/17 05:11 05:21 05:31 Temperature Pulse Rate 59 L 58 L 61 Pulse Rate [ From Monitor] Pulse Rate [ Right Dorsalis Pedis] Respiratory 15 14 14 Rate Blood Pressure 114/52 114/52 114/52 O2 Sat by Pulse 100 100 96 Oximetry 05/09/17 05/09/17 05/09/17 05:41 05:51 06:01 Temperature Pulse Rate 59 L 60 64 Pulse Rate [ From Monitor] Pulse Rate [ Right Dorsalis Pedis] Respiratory 14 15 15 Rate Blood Pressure 114/52 114/52 86/48 O2 Sat by Pulse 100 100 100 Oximetry 05/09/17 05/09/17 05/09/17 06:11 06:21 06:30 Temperature Pulse Rate 62 61 Pulse Rate [ From Monitor] Pulse Rate [ Right Dorsalis Pedis] Respiratory 16 15 Rate Blood Pressure 86/48 86/48 86/48 O2 Sat by Pulse 82 L 100 99 Oximetry 05/09/17 05/09/17 05/09/17 06:41 06:51 07:01 Temperature Pulse Rate 59 L 60 58 L Pulse Rate [ From Monitor] Pulse Rate [ Right Dorsalis Pedis] Respiratory 13 15 14 Rate Blood Pressure 86/48 86/48 86/48 O2 Sat by Pulse 100 100 Oximetry 05/09/17 05/09/17 05/09/17 07:11 07:21 07:31 Temperature Pulse Rate 57 L 60 56 L Pulse Rate [ From Monitor] Pulse Rate [ Right Dorsalis Pedis] Respiratory 14 13 13 Rate Blood Pressure 86/48 111/61 111/61 O2 Sat by Pulse 100 100 97 Oximetry 05/09/17 05/09/17 05/09/17 07:41 07:51 08:00 Temperature 97.4 F L Pulse Rate 61 59 L Pulse Rate [ 57 L From Monitor] Pulse Rate [ Right Dorsalis Pedis] Respiratory 15 13 14 Rate Blood Pressure 111/61 111/61 O2 Sat by Pulse 95 100 100 Oximetry 05/09/17 05/09/17 05/09/17 08:01 08:11 08:21 Temperature Pulse Rate 61 59 L 57 L Pulse Rate [ From Monitor] Pulse Rate [ Right Dorsalis Pedis] Respiratory 11 L 15 13 Rate Blood Pressure 111/61 119/61 119/61 O2 Sat by Pulse 100 100 100 Oximetry 05/09/17 05/09/17 05/09/17 08:30 08:41 08:51 Temperature Pulse Rate 60 60 58 L Pulse Rate [ From Monitor] Pulse Rate [ Right Dorsalis Pedis] Respiratory 14 14 14 Rate Blood Pressure 120/70 119/61 119/61 O2 Sat by Pulse 100 100 100 Oximetry 05/09/17 09:00 Temperature Pulse Rate 59 L Pulse Rate [ From Monitor] Pulse Rate [ Right Dorsalis Pedis] Respiratory 14 Rate Blood Pressure 115/70 O2 Sat by Pulse 100 Oximetry General appearance: Present: no acute distress, obese - EENT ENT: other (unable to assess secondary to mental state) - Neck Neck: supple - Respiratory Respiratory effort: normal Respiratory: bilateral: CTA - Breasts Breasts: deferred - Cardiovascular Rhythm: regular Heart Sounds: Present: S1 & S2 Extremities: no ischemia - Labs CBC & Chem 7: 05/09/17 04:50 05/09/17 04:50 Labs: Abnormal lab results 05/08/17 05/08/17 05/08/17 Range/Units 09:30 12:13 15:45 RDW (13.2-15.2) % Plt Count (140-440) K/mm3 Lymph % (Auto) (13.4-35.0) % Seg Neutrophils % (40.0-70.0) % Seg Neutrophils # (1.8-7.7) K/mm3 Sodium > 179 H* 174 H* (137-145) mmol/L Potassium 3.3 L (3.6-5.0) mmol/L Chloride > 139 H > 139 H (98-107) mmol/L Carbon Dioxide 21 L (22-30) mmol/L BUN 52 H (7-17) mg/dL Creatinine 2.0 H (0.7-1.2) mg/dL Glucose 170 H (65-100) mg/dL POC Glucose 171 H (70-105) Calcium 6.4 L (8.4-10.2) mg/dL 05/08/17 05/08/17 05/09/17 Range/Units 16:53 21:34 00:00 RDW (13.2-15.2) % Plt Count (140-440) K/mm3 Lymph % (Auto) (13.4-35.0) % Seg Neutrophils % (40.0-70.0) % Seg Neutrophils # (1.8-7.7) K/mm3 Sodium 168 H* 166 H* (137-145) mmol/L Potassium 3.4 L (3.6-5.0) mmol/L Chloride 134.8 H 133.3 H (98-107) mmol/L Carbon Dioxide 20 L 20 L (22-30) mmol/L BUN 44 H 41 H (7-17) mg/dL Creatinine 1.7 H 1.7 H (0.7-1.2) mg/dL Glucose 143 H 150 H (65-100) mg/dL POC Glucose 151 H (70-105) Calcium 6.3 L 6.3 L (8.4-10.2) mg/dL 05/09/17 05/09/17 05/09/17 Range/Units 00:34 01:01 04:50 RDW (13.2-15.2) % Plt Count (140-440) K/mm3 Lymph % (Auto) (13.4-35.0) % Seg Neutrophils % (40.0-70.0) % Seg Neutrophils # (1.8-7.7) K/mm3 Sodium 166 H* (137-145) mmol/L Potassium 3.3 L (3.6-5.0) mmol/L Chloride 132.7 H (98-107) mmol/L Carbon Dioxide 20 L (22-30) mmol/L BUN 38 H (7-17) mg/dL Creatinine 1.6 H (0.7-1.2) mg/dL Glucose 146 H (65-100) mg/dL POC Glucose 159 H 135 H (70-105) Calcium 6.2 L (8.4-10.2) mg/dL 05/09/17 05/09/17 Range/Units 04:50 06:08 RDW 16.6 H (13.2-15.2) % Plt Count 69 L (140-440) K/mm3 Lymph % (Auto) 12.2 L (13.4-35.0) % Seg Neutrophils % 81.0 H (40.0-70.0) % Seg Neutrophils # 7.8 H (1.8-7.7) K/mm3 Sodium (137-145) mmol/L Potassium (3.6-5.0) mmol/L Chloride (98-107) mmol/L Carbon Dioxide (22-30) mmol/L BUN (7-17) mg/dL Creatinine (0.7-1.2) mg/dL Glucose (65-100) mg/dL POC Glucose 141 H (70-105) Calcium (8.4-10.2) mg/dL
[2017-05-09] MEDS: cefTRIAXone 1 GM in NACL 0.9% 20 ML IV SCH (15:01)
[2017-05-09 15:46] LABS: Chloride 124.7 mmol/L (98-107); Potassium 3.7 mmol/L (3.6-5.0)
--- NOTE | 2017-05-09 16:07 | Progress Note ---
Assessment and Plan Assessment and plan: 87 year old female came from [facility] for altered mental status, no history obtained Acute metabolic encephalopathy Severe sepsis Hypotension Hypernatremia, hyperchloremia Severe Dehydration Dementia Acute renal failure, no baseline -Patient is on IV ceftriaxone, urine cultures positive for Escherichia coli which is sensitive for ceftriaxone - Frequent check BMP for follow-up of hypernatremia, increase free water, sodium this morning is 156 which is improving from baseline - Patient is on levophed DVT prophylaxis - on heparin Disposition -Continue ICU care History Interval history: Patient was seen and evaluated this morning, patient is non-communicative, could be her baseline. Hospitalist Physical - Physical exam Narrative exam: Not in cardiopulmonary distress. The patient is obese. Vital signs as documented. Head exam is unremarkable. No scleral icterus . Neck is without jugular venous distension, thyromegaly, or carotid bruits. Lungs are clear to auscultation. Cardiac exam reveals regular rate and Rhythm. First and second heart sounds normal. No murmurs, rubs or gallops. Abdominal exam reveals normal bowel sounds, no masses, no organomegaly and no aortic enlargement. Extremities are nonedematous and both femoral and pedal pulses are normal. 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 - Constitutional Vitals: Temp Pulse Resp BP Pulse Ox 97.0 F L 61 15 145/60 100 05/09/17 12:00 05/09/17 15:00 05/09/17 15:00 05/09/17 15:00 05/09/17 15:00 General appearance: Present: no acute distress, obese Results - Labs CBC & Chem 7: 05/09/17 04:50 05/09/17 15:10 Labs: Laboratory Last Values WBC 9.6 K/mm3 (4.5-11.0) 05/09/17 04:50 RBC 3.84 M/mm3 (3.65-5.03) 05/09/17 04:50 Hgb 10.9 gm/dl (10.1-14.3) 05/09/17 04:50 Hct 35.2 % (30.3-42.9) D 05/09/17 04:50 MCV 92 fl (79-97) 05/09/17 04:50 MCH 28 pg (28-32) 05/09/17 04:50 MCHC 31 % (30-34) 05/09/17 04:50 RDW 16.6 % (13.2-15.2) H 05/09/17 04:50 Plt Count 69 K/mm3 (140-440) L 05/09/17 04:50 Lymph % (Auto) 12.2 % (13.4-35.0) L 05/09/17 04:50 [place] % (Auto) 4.8 % (0.0-7.3) 05/09/17 04:50 Eos % (Auto) 1.7 % (0.0-4.3) 05/09/17 04:50 Baso % (Auto) 0.3 % (0.0-1.8) 05/09/17 04:50 Lymph # 1.2 K/mm3 (1.2-5.4) 05/09/17 04:50 [place] # 0.5 K/mm3 (0.0-0.8) 05/09/17 04:50 Eos # 0.2 K/mm3 (0.0-0.4) 05/09/17 04:50 Baso # 0.0 K/mm3 (0.0-0.1) 05/09/17 04:50 Seg Neutrophils % 81.0 % (40.0-70.0) H 05/09/17 04:50 Seg Neutrophils # 7.8 K/mm3 (1.8-7.7) H 05/09/17 04:50 PT 16.7 Sec. (12.2-14.9) H 05/08/17 05:18 INR 1.28 (0.87-1.13) H 05/08/17 05:18 APTT 35.6 Sec. (24.2-36.6) 05/07/17 17:35 POC ABG pH 7.308 (7.35-7.45) L 05/08/17 01:19 POC ABG pCO2 39.0 (35-45) 05/08/17 01:19 POC ABG pO2 87 (80-105) 05/08/17 01:19 POC ABG HCO3 19.6 05/08/17 01:19 POC ABG Total CO2 21 05/08/17 01:19 POC ABG O2 Sat 96 05/08/17 01:19 POC ABG Base Excess -7 05/08/17 01:19 FiO2 21 % 05/08/17 01:19 Sodium 156 mmol/L (137-145) H D 05/09/17 15:10 Potassium 3.7 mmol/L (3.6-5.0) 05/09/17 15:10 Chloride 124.7 mmol/L (98-107) H 05/09/17 15:10 Carbon Dioxide 20 mmol/L (22-30) L 05/09/17 04:50 Anion Gap 17 mmol/L 05/09/17 04:50 BUN 38 mg/dL (7-17) H 05/09/17 04:50 Creatinine 1.6 mg/dL (0.7-1.2) H 05/09/17 04:50 Estimated GFR 37 ml/min 05/09/17 04:50 BUN/Creatinine Ratio 24 % 05/09/17 04:50 Glucose 146 mg/dL (65-100) H 05/09/17 04:50 POC Glucose 160 (70-105) H 05/09/17 11:28 Lactic Acid 3.40 mmol/L (0.7-2.0) H* 05/07/17 Unknown Calcium 6.2 mg/dL (8.4-10.2) L 05/09/17 04:50 Magnesium 3.60 mg/dL (1.7-2.3) H 05/07/17 17:50 Total Bilirubin 0.50 mg/dL (0.1-1.2) 05/08/17 05:18 Direct Bilirubin < 0.2 mg/dL (0-0.2) 05/07/17 17:50 Indirect Bilirubin 0.3 mg/dL 05/07/17 17:50 AST 42 units/L (5-40) H 05/08/17 05:18 ALT 24 units/L (7-56) 05/08/17 05:18 Alkaline Phosphatase 86 units/L (35-129) 05/08/17 05:18 Total Creatine Kinase 1235 units/L (30-135) H 05/07/17 17:50 CK-MB (CK-2) 6.8 ng/mL (0.0-4.0) H 05/07/17 17:50 CK-MB (CK-2) Rel Index 0.5 (0-4) 12/04/17 17:50 Troponin T 0.049 ng/mL (0.00-0.029) H 05/07/17 17:50 NT-Pro-B Natriuret Pep 237.5 pg/mL (0-900) 05/07/17 17:50 Total Protein 5.5 g/dL (6.3-8.2) L 05/08/17 05:18 Albumin 3.0 g/dL (3.9-5) L 05/08/17 05:18 Albumin/Globulin Ratio 1.2 % 05/08/17 05:18 Triglycerides 213 mg/dL (2-149) H 05/07/17 17:50 Cholesterol 158 mg/dL (50-199) 05/07/17 17:50 LDL Cholesterol Direct 87 mg/dL (50-130) 05/07/17 17:50 HDL Cholesterol 29 mg/dL (40-59) L 05/07/17 17:50 Cholesterol/HDL Ratio 5.44 % 05/07/17 17:50 Amylase 26 units/L (27-131) L 05/08/17 05:18 Urine Color Straw (Yellow) 05/07/17 19:18 Urine Turbidity Turbid (Clear) 05/07/17 19:18 Urine pH 5.0 (5.0-7.0) 05/07/17 19:18 Ur Specific [place] 1.017 (1.003-1.030) 05/07/17 19:18 Urine Protein 100 mg/dl mg/dL (Negative) 05/07/17 19:18 Urine Glucose (UA) Neg mg/dL (Negative) 05/07/17 19:18 Urine Ketones Neg mg/dL (Negative) 05/07/17 19:18 Urine Blood Sm (Negative) 05/07/17 19:18 Urine Nitrite Neg (Negative) 05/07/17 19:18 Urine Bilirubin Neg (Negative) 05/07/17 19:18 Urine Urobilinogen < 2.0 mg/dL (<2.0) 05/07/17 19:18 Ur Leukocyte Esterase Mod (Negative) 05/07/17 19:18 Urine WBC (Auto) > 182.0 /HPF (0.0-6.0) H 05/07/17 19:18 Urine RBC (Auto) > 182.0 /HPF (0.0-6.0) 05/07/17 19:18 U Epithel Cells (Auto) 5.0 /HPF (0-13.0) 05/07/17 19:18 Urine Bacteria (Auto) 4+ /HPF (Negative) 05/07/17 19:18 Urine Mucus 3+ /HPF 05/07/17 19:18 Hypernatremia is improving
[2017-05-09 21:02] LABS: Chloride 119.7 mmol/L (98-107); Potassium 3.4 mmol/L (3.6-5.0)
[2017-05-10] MEDS: D5W 1,000 ML IV SCH ×3 (04:04→22:08)
[2017-05-10] MEDS: NOVOLOG SUB-Q SCH ×4 (06:16→18:18)
[2017-05-10] MEDS: POTASSIUM CHLORIDE FEEDTUBE SCH ×4 (08:20→18:16)
[2017-05-10 09:46] LABS: Anion Gap 14 mmol/L; BUN/Creatinine Ratio 21; Blood Urea Nitrogen 19 mg/dL (7-17); Carbon Dioxide 21 mmol/L (22-30); Chloride 120.7 mmol/L (98-107); Glucose 151 mg/dL (65-100); Potassium 3.6 mmol/L (3.6-5.0); Sodium 152 mmol/L (137-145)
--- NOTE | 2017-05-10 10:01 | Progress Note ---
Assessment and Plan 87 y/o female with altered mental status, found to be severely volume deplete and possible urinary tract infection. 1. Continue Free water IV and via DH tube 2. continue tube feeds 3. q6hour chemistries and to follow up Na, need to continue until Na is closer to normal limits 4. Stop Vanc but continue Zosyn, UA is positive and culture has GNR, E. Coli and now abx have been changed. 5. Will obtain head ct today, noncontrast. Mental status has not improved with improvement in Na CCt 31 minutes. Subjective Date of service: 05/10/17 Interval history: Na better, BP better. Mental status is unchanged. Again, no family at bedside. Objective - Constitutional Vitals: Vital Signs - 12hr 05/09/17 05/09/17 05/09/17 22:00 22:11 22:21 Temperature Pulse Rate 63 92 H 65 Respiratory 17 15 16 Rate Blood Pressure 125/51 125/51 125/51 O2 Sat by Pulse 100 100 100 Oximetry 05/09/17 05/09/17 05/09/17 22:31 22:41 22:51 Temperature Pulse Rate 63 65 65 Respiratory 16 15 15 Rate Blood Pressure 125/51 136/75 136/75 O2 Sat by Pulse 100 100 100 Oximetry 05/09/17 05/09/17 05/09/17 23:01 23:11 23:21 Temperature Pulse Rate 64 64 62 Respiratory 15 17 15 Rate Blood Pressure 124/72 124/72 124/72 O2 Sat by Pulse 100 100 100 Oximetry 05/09/17 05/09/17 05/09/17 23:25 23:30 23:41 Temperature Pulse Rate 63 65 62 Respiratory 12 13 18 Rate Blood Pressure 124/72 131/78 131/78 O2 Sat by Pulse 100 100 99 Oximetry 05/09/17 05/09/17 05/10/17 23:42 23:51 00:00 Temperature 96.1 F L Pulse Rate 63 64 Respiratory 16 22 Rate Blood Pressure 131/78 131/87 O2 Sat by Pulse 100 100 Oximetry 05/10/17 05/10/17 05/10/17 00:11 00:21 00:30 Temperature Pulse Rate 65 64 63 Respiratory 16 16 17 Rate Blood Pressure 131/87 131/87 138/85 O2 Sat by Pulse 100 100 100 Oximetry 05/10/17 05/10/17 05/10/17 00:41 00:51 01:00 Temperature Pulse Rate 60 62 62 Respiratory 16 17 17 Rate Blood Pressure 138/85 138/85 134/89 O2 Sat by Pulse 100 100 100 Oximetry 05/10/17 05/10/17 05/10/17 01:11 01:21 01:30 Temperature Pulse Rate 64 64 65 Respiratory 18 18 15 Rate Blood Pressure 134/89 134/89 132/91 O2 Sat by Pulse 100 100 100 Oximetry 05/10/17 05/10/17 05/10/17 01:41 01:51 02:00 Temperature Pulse Rate 64 64 63 Respiratory 20 20 18 Rate Blood Pressure 132/91 132/91 142/98 O2 Sat by Pulse 100 100 100 Oximetry 05/10/17 05/10/17 05/10/17 02:11 02:21 02:30 Temperature Pulse Rate 64 64 64 Respiratory 18 19 21 Rate Blood Pressure 142/98 142/98 133/64 O2 Sat by Pulse 100 100 100 Oximetry 05/10/17 05/10/17 05/10/17 02:41 02:51 03:00 Temperature Pulse Rate 65 64 64 Respiratory 14 17 16 Rate Blood Pressure 142/98 142/98 134/65 O2 Sat by Pulse 100 100 100 Oximetry 05/10/17 05/10/17 05/10/17 03:11 03:20 03:30 Temperature Pulse Rate 66 64 64 Respiratory 18 17 19 Rate Blood Pressure 134/65 134/65 137/69 O2 Sat by Pulse 100 100 100 Oximetry 05/10/17 05/10/17 05/10/17 03:41 03:51 04:00 Temperature 96.4 F L Pulse Rate 64 65 62 Respiratory 18 19 17 Rate Blood Pressure 134/65 134/65 128/71 O2 Sat by Pulse 100 100 100 Oximetry 05/10/17 05/10/17 05/10/17 04:11 04:21 04:30 Temperature Pulse Rate 65 64 64 Respiratory 22 20 17 Rate Blood Pressure 128/71 128/71 137/75 O2 Sat by Pulse 100 100 100 Oximetry 05/10/17 05/10/17 05/10/17 04:41 04:51 05:01 Temperature Pulse Rate 61 59 L 61 Respiratory 19 17 15 Rate Blood Pressure 128/71 128/71 136/65 O2 Sat by Pulse 100 100 100 Oximetry 05/10/17 05/10/17 05/10/17 05:11 05:21 05:31 Temperature Pulse Rate 63 62 62 Respiratory 19 18 17 Rate Blood Pressure 136/65 136/65 136/65 O2 Sat by Pulse 100 100 100 Oximetry 05/10/17 05/10/17 05/10/17 05:41 05:51 06:00 Temperature Pulse Rate 63 62 63 Respiratory 17 16 18 Rate Blood Pressure 137/34 137/34 140/77 O2 Sat by Pulse 100 100 100 Oximetry 05/10/17 05/10/17 05/10/17 06:11 06:21 06:30 Temperature Pulse Rate 62 62 63 Respiratory 17 17 15 Rate Blood Pressure 140/77 140/77 149/74 O2 Sat by Pulse 100 100 100 Oximetry 05/10/17 05/10/17 05/10/17 06:41 06:51 07:00 Temperature Pulse Rate 61 61 61 Respiratory 17 17 18 Rate Blood Pressure 149/74 140/77 137/70 O2 Sat by Pulse 100 100 100 Oximetry 05/10/17 05/10/17 05/10/17 07:11 07:21 07:31 Temperature Pulse Rate 62 61 60 Respiratory 13 18 16 Rate Blood Pressure 137/70 137/70 132/73 O2 Sat by Pulse 100 100 100 Oximetry 05/10/17 05/10/17 05/10/17 07:41 07:51 08:00 Temperature Pulse Rate 60 60 61 Respiratory 20 17 16 Rate Blood Pressure 132/73 132/73 135/74 O2 Sat by Pulse 99 99 99 Oximetry 05/10/17 08:11 Temperature Pulse Rate 57 L Respiratory 17 Rate Blood Pressure 135/74 O2 Sat by Pulse 99 Oximetry General appearance: Present: no acute distress, other (obtunded) - EENT Eyes: conjunctival injection (right eye, red), discharge (right eye) - Neck Neck: supple - Respiratory Respiratory effort: normal Respiratory: bilateral: CTA - Breasts Breasts: deferred - Cardiovascular Rhythm: regular Heart Sounds: Present: S1 & S2 Extremities: no ischemia - Gastrointestinal General gastrointestinal: Present: soft, non-tender, non-distended, normal bowel sounds Rectal Exam: deferred - Genitourinary Female genitourinary: deferred - Musculoskeletal Musculoskeletal: generalized weakness - Neurologic Neurologic: other (unable to assess as she is not following commands) - Labs CBC & Chem 7: 05/09/17 04:50 05/10/17 08:40 Labs: Abnormal lab results 05/09/17 05/09/17 05/09/17 Range/Units 11:28 15:10 17:48 Sodium 156 H D (137-145) mmol/L Potassium (3.6-5.0) mmol/L Chloride 124.7 H (98-107) mmol/L Carbon Dioxide (22-30) mmol/L BUN (7-17) mg/dL Glucose (65-100) mg/dL POC Glucose 160 H 191 H (70-105) Calcium (8.4-10.2) mg/dL 05/09/17 05/09/17 05/10/17 Range/Units 20:30 23:12 08:40 Sodium 152 H 152 H (137-145) mmol/L Potassium 3.4 L (3.6-5.0) mmol/L Chloride 119.7 H 120.7 H (98-107) mmol/L Carbon Dioxide 21 L (22-30) mmol/L BUN 19 H (7-17) mg/dL Glucose 151 H (65-100) mg/dL POC Glucose 130 H (70-105) Calcium 6.0 L (8.4-10.2) mg/dL
[2017-05-10] MEDS: HEPARIN SUB-Q SCH (10:56)
[2017-05-10] MEDS: cefTRIAXone 1 GM in NACL 0.9% 20 ML IV SCH (11:03)
[2017-05-10 11:55] LABS: Basophils % (Auto) 0.1 % (0.0-1.8); Eosinophils % (Auto) 1.6 % (0.0-4.3); Hematocrit 35.6 % (30.3-42.9); Mean Corpuscular HGB Conc 31 % (30-34); Mean Corpuscular Hemoglobin 27 pg (28-32); Mean Corpuscular Volume 88 fl (79-97); Red Blood Count 4.04 M/mm3 (3.65-5.03); Red Cell Distribution Width 15.6 % (13.2-15.2); White Blood Count 7.4 K/mm3 (4.5-11.0)
[2017-05-10 11:56] LABS: Platelet Count 58 K/mm3 (140-440)
--- NOTE | 2017-05-10 13:09 | Cat Scan Report ---
CT HEAD WITHOUT CONTRAST INDICATION: Altered mental status. COMPARISON: 10/08/2010. FINDINGS: Noncontrast head CT demonstrates mild interval progression of overall age-appropriate ventricular and sulcal enlargement. Motion artifact partly degrades exam. Moderate periventricular white matter hypodensities again noted as also bilateral basal ganglia benign calcifications. No definite acute infarct, hemorrhage mass effect or midline shift. No abnormal extra axial fluid collections. Normal posterior fossa with preserved basilar cisterns. Clear imaged paranasal sinuses and mastoid air cells. Intact calvarium. Normal scalp. Numerous radiopaque dental material. A nasogastric Dobbhoff tube incidentally noted. CONCLUSION: No acute intracranial CT abnormality with age-appropriate atrophy and extensive microvascular changes, as described. Thank you for the opportunity to participate in this patient's care.
--- NOTE | 2017-05-10 17:54 | Progress Note ---
Assessment and Plan Assessment and plan: 87 year old female came from long term for altered mental status, no history obtained Acute metabolic encephalopathy - could be her baseline Severe sepsis - Continue IV ceftriaxone Hypotension Hypernatremia, hyperchloremia - Improving [place] 151 on the last BMP - will continue to monitor and increase free water Severe Dehydration - On IV fluids and NG tube feeding Dementia Acute renal failure, no baseline to compare, resolved DVT prophylaxis - on heparin Disposition -Continue ICU care The high probability of a clinically significant, sudden or life threatening deterioration of the [neurology, CV] system(s) required my full and direct attention, intervention and personal management. The aggregate critical care time was [31] minutes. This time is in addition to time spent performing reported procedures but includes the following: [x] Data Review and interpretation [x] Patient assessment and monitoring of vital signs [x] Documentation [x] Medication orders and management History Interval history: Patient was seen and evaluated this morning, patient is non-communicative, could be her baseline. Hospitalist Physical - Physical exam Narrative exam: Not in cardiopulmonary distress. The patient is obese. Vital signs as documented. Head exam is unremarkable. No scleral icterus . Neck is without jugular venous distension, thyromegaly, or carotid bruits. Lungs are clear to auscultation. Cardiac exam reveals regular rate and Rhythm. First and second heart sounds normal. No murmurs, rubs or gallops. Abdominal exam reveals normal bowel sounds, no masses, no organomegaly and no aortic enlargement. Extremities are nonedematous and both femoral and pedal pulses are normal. [employer]ER: Patient is not communicative, could be her baseline dementia. - Constitutional Vitals: Temp Pulse Resp BP Pulse Ox 96.4 F L 64 18 131/65 100 05/10/17 04:00 05/10/17 16:51 05/10/17 16:51 05/10/17 16:51 05/10/17 16:51 General appearance: Present: no acute distress, other (obtunded) Results - Labs CBC & Chem 7: 05/10/17 11:30 05/10/17 08:40 Labs: Laboratory Last Values WBC 7.4 K/mm3 (4.5-11.0) 05/10/17 11:30 RBC 4.04 M/mm3 (3.65-5.03) 05/10/17 11:30 Hgb 11.0 gm/dl (10.1-14.3) 05/10/17 11:30 Hct 35.6 % (30.3-42.9) 05/10/17 11:30 MCV 88 fl (79-97) 05/10/17 11:30 MCH 27 pg (28-32) L 05/10/17 11:30 MCHC 31 % (30-34) 05/10/17 11:30 RDW 15.6 % (13.2-15.2) H 05/10/17 11:30 Plt Count 58 K/mm3 (140-440) L 05/10/17 11:30 Lymph % (Auto) 10.6 % (13.4-35.0) L 05/10/17 11:30 [place] % (Auto) 6.2 % (0.0-7.3) 05/10/17 11:30 Eos % (Auto) 1.6 % (0.0-4.3) 05/10/17 11:30 Baso % (Auto) 0.1 % (0.0-1.8) 05/10/17 11:30 Lymph # 0.8 K/mm3 (1.2-5.4) L 05/10/17 11:30 [place] # 0.5 K/mm3 (0.0-0.8) 05/10/17 11:30 Eos # 0.1 K/mm3 (0.0-0.4) 05/10/17 11:30 Baso # 0.0 K/mm3 (0.0-0.1) 05/10/17 11:30 Seg Neutrophils % 81.5 % (40.0-70.0) H 05/10/17 11:30 Seg Neutrophils # 6.1 K/mm3 (1.8-7.7) 05/10/17 11:30 PT 16.7 Sec. (12.2-14.9) H 05/08/17 05:18 INR 1.28 (0.87-1.13) H 05/08/17 05:18 APTT 35.6 Sec. (24.2-36.6) 05/07/17 17:35 POC ABG pH 7.308 (7.35-7.45) L 05/08/17 01:19 POC ABG pCO2 39.0 (35-45) 05/08/17 01:19 POC ABG pO2 87 (80-105) 05/08/17 01:19 POC ABG HCO3 19.6 05/08/17 01:19 POC ABG Total CO2 21 05/08/17 01:19 POC ABG O2 Sat 96 05/08/17 01:19 POC ABG Base Excess -7 05/08/17 01:19 FiO2 21 % 05/08/17 01:19 Sodium 152 mmol/L (137-145) H 05/10/17 08:40 Potassium 3.6 mmol/L (3.6-5.0) 05/10/17 08:40 Chloride 120.7 mmol/L (98-107) H 05/10/17 08:40 Carbon Dioxide 21 mmol/L (22-30) L 05/10/17 08:40 Anion Gap 14 mmol/L 05/10/17 08:40 BUN 19 mg/dL (7-17) H 05/10/17 08:40 Creatinine 0.9 mg/dL (0.7-1.2) 05/10/17 08:40 Estimated GFR > 60 ml/min 05/10/17 08:40 BUN/Creatinine Ratio 21 % 05/10/17 08:40 Glucose 151 mg/dL (65-100) H 05/10/17 08:40 POC Glucose 83 (70-105) 05/10/17 17:13 Lactic Acid 3.40 mmol/L (0.7-2.0) H* 05/07/17 Unknown Calcium 6.0 mg/dL (8.4-10.2) L 05/10/17 08:40 Magnesium 3.60 mg/dL (1.7-2.3) H 05/07/17 17:50 Total Bilirubin 0.50 mg/dL (0.1-1.2) 05/08/17 05:18 Direct Bilirubin < 0.2 mg/dL (0-0.2) 05/07/17 17:50 Indirect Bilirubin 0.3 mg/dL 05/07/17 17:50 AST 42 units/L (5-40) H 05/08/17 05:18 ALT 24 units/L (7-56) 05/08/17 05:18 Alkaline Phosphatase 86 units/L (35-129) 05/08/17 05:18 Total Creatine Kinase 1235 units/L (30-135) H 05/07/17 17:50 CK-MB (CK-2) 6.8 ng/mL (0.0-4.0) H 05/07/17 17:50 CK-MB (CK-2) Rel Index 0.5 (0-4) 05/07/17 17:50 Troponin T 0.049 ng/mL (0.00-0.029) H 05/07/17 17:50 NT-Pro-B Natriuret Pep 237.5 pg/mL (0-900) 05/07/17 17:50 Total Protein 5.5 g/dL (6.3-8.2) L 05/08/17 05:18 Albumin 3.0 g/dL (3.9-5) L 05/08/17 05:18 Albumin/Globulin Ratio 1.2 % 05/08/17 05:18 Triglycerides 213 mg/dL (2-149) H 05/07/17 17:50 Cholesterol 158 mg/dL (50-199) 05/07/17 17:50 LDL Cholesterol Direct 87 mg/dL (50-130) 05/07/17 17:50 HDL Cholesterol 29 mg/dL (40-59) L 05/07/17 17:50 Cholesterol/HDL Ratio 5.44 % 05/07/17 17:50 Amylase 26 units/L (27-131) L 05/08/17 05:18 Urine Color Straw (Yellow) 05/07/17 19:18 Urine Turbidity Turbid (Clear) 05/07/17 19:18 Urine pH 5.0 (5.0-7.0) 05/07/17 19:18 Ur Specific [place] 1.017 (1.003-1.030) 05/07/17 19:18 Urine Protein 100 mg/dl mg/dL (Negative) 05/07/17 19:18 Urine Glucose (UA) Neg mg/dL (Negative) 05/07/17 19:18 Urine Ketones Neg mg/dL (Negative) 05/07/17 19:18 Urine Blood Sm (Negative) 05/07/17 19:18 Urine Nitrite Neg (Negative) 05/07/17 19:18 Urine Bilirubin Neg (Negative) 05/07/17 19:18 Urine Urobilinogen < 2.0 mg/dL (<2.0) 05/07/17 19:18 Ur Leukocyte Esterase Mod (Negative) 05/07/17 19:18 Urine WBC (Auto) > 182.0 /HPF (0.0-6.0) H 05/07/17 19:18 Urine RBC (Auto) > 182.0 /HPF (0.0-6.0) 05/07/17 19:18 U Epithel Cells (Auto) 5.0 /HPF (0-13.0) 05/07/17 19:18 Urine Bacteria (Auto) 4+ /HPF (Negative) 05/07/17 19:18 Urine Mucus 3+ /HPF 05/07/17 19:18
[2017-05-10] MEDS ORDERED: NACL 0.9% 1000 ML 1,000 ML IV ONE ×2 (20:57→22:50)
[2017-05-10] MEDS ORDERED: LEVOPHED DRIP 4 MG/NS 250 ML 4 MG/250 ML BAG IV SCH (21:00)
[2017-05-10] MEDS: ZOSYN/NS 4.5GM/100ML 4.5 GM/100 ML VIAL IV SCH (22:47)
[2017-05-10 23:13] LABS: Chloride 116.8 mmol/L (98-107)
[2017-05-11] MEDS: ARICEPT PO SCH ×2 (00:57→22:36)
[2017-05-11] MEDS: NOVOLOG SUB-Q SCH ×4 (00:59→18:24)
[2017-05-11] MEDS: D5W 1,000 ML IV SCH ×2 (03:10→16:17)
[2017-05-11] MEDS: ZOSYN/NS 4.5GM/100ML 4.5 GM/100 ML VIAL IV SCH ×3 (05:35→22:37)
[2017-05-11 06:32] LABS: Chloride 119.6 mmol/L (98-107); Potassium 4.1 mmol/L (3.6-5.0)
--- NOTE | 2017-05-11 09:10 | Progress Note ---
Assessment and Plan 87 y/o female with altered mental status, found to be severely volume deplete and possible urinary tract infection. 1. Continue Free water IV and via DH tube, follow up labs from this am. ordered this am as they were not ordered yesterday. Will order labs for the am 2. continue tube feeds 3. Head CT was negative, hopefully all metabolic encephalopathy. Pending results once Na in normal range, may need to consider Neuro consult and MRI 4. Added back Zosyn last night given clinical change. Recultured. Will follow up and can hopefully descalate 5. Wean Levophed for MAPs>65 CCt 31 minutes. Subjective Date of service: 05/11/17 Interval history: Last night became hypothermic and hypotensive again. I changed abx back to Zosyn despite sensitivities on E. Coli. Added Shalini Montes De Oca and recultured. Levophed at 4 but last MAP documented at 85. When I called her name this am, she did open her eyes. No family at bedside. Objective - Constitutional Vitals: Vital Signs - 12hr 05/10/17 05/10/17 05/10/17 21:11 21:20 21:30 Temperature Pulse Rate 65 69 70 Pulse Rate [ From Monitor] Respiratory 20 19 20 Rate Blood Pressure 129/101 O2 Sat by Pulse 100 100 Oximetry 05/10/17 05/10/17 05/10/17 21:40 21:50 22:00 Temperature Pulse Rate 72 74 65 Pulse Rate [ From Monitor] Respiratory 20 20 22 Rate Blood Pressure O2 Sat by Pulse 100 100 100 Oximetry 05/10/17 05/10/17 05/10/17 22:10 22:20 22:30 Temperature Pulse Rate 72 75 67 Pulse Rate [ From Monitor] Respiratory 20 20 20 Rate Blood Pressure 116/68 118/71 114/68 O2 Sat by Pulse 100 100 100 Oximetry 05/10/17 05/10/17 05/10/17 22:40 22:50 23:00 Temperature Pulse Rate 73 64 64 Pulse Rate [ From Monitor] Respiratory 21 18 21 Rate Blood Pressure 114/68 83/53 119/66 O2 Sat by Pulse 100 100 100 Oximetry 05/10/17 05/10/17 05/10/17 23:10 23:20 23:30 Temperature Pulse Rate 66 78 76 Pulse Rate [ From Monitor] Respiratory 17 19 20 Rate Blood Pressure 119/66 117/67 116/64 O2 Sat by Pulse 99 100 100 Oximetry 05/10/17 05/10/17 05/10/17 23:40 23:50 23:58 Temperature Pulse Rate 73 69 67 Pulse Rate [ From Monitor] Respiratory 19 17 17 Rate Blood Pressure 116/64 118/63 118/63 O2 Sat by Pulse 100 99 99 Oximetry 05/11/17 05/11/17 05/11/17 00:00 00:15 00:30 Temperature 97.1 F L Pulse Rate 71 65 73 Pulse Rate [ 74 From Monitor] Respiratory 20 20 23 Rate Blood Pressure 118/63 109/62 87/60 O2 Sat by Pulse 99 99 99 Oximetry 05/11/17 05/11/17 05/11/17 00:45 01:00 01:15 Temperature Pulse Rate 68 72 69 Pulse Rate [ From Monitor] Respiratory 18 18 20 Rate Blood Pressure 108/68 92/53 89/59 O2 Sat by Pulse 99 98 99 Oximetry 05/11/17 05/11/17 05/11/17 01:30 01:45 02:00 Temperature Pulse Rate 67 68 67 Pulse Rate [ From Monitor] Respiratory 20 20 19 Rate Blood Pressure 99/54 96/56 99/54 O2 Sat by Pulse 98 98 99 Oximetry 05/11/17 05/11/17 05/11/17 02:15 02:30 02:46 Temperature Pulse Rate 77 91 H 76 Pulse Rate [ From Monitor] Respiratory 22 23 22 Rate Blood Pressure 93/74 93/74 102/66 O2 Sat by Pulse 98 99 98 Oximetry 05/11/17 05/11/17 05/11/17 03:00 03:15 03:30 Temperature Pulse Rate 73 70 70 Pulse Rate [ From Monitor] Respiratory 23 18 23 Rate Blood Pressure 115/67 115/64 105/54 O2 Sat by Pulse 99 99 99 Oximetry 05/11/17 05/11/17 05/11/17 03:45 03:49 04:00 Temperature 98.6 F Pulse Rate 70 68 Pulse Rate [ 69 From Monitor] Respiratory 22 24 Rate Blood Pressure 117/57 119/61 O2 Sat by Pulse 99 99 Oximetry 05/11/17 05/11/17 05/11/17 04:15 04:30 04:45 Temperature Pulse Rate 69 68 68 Pulse Rate [ From Monitor] Respiratory 20 20 20 Rate Blood Pressure 116/64 106/59 102/63 O2 Sat by Pulse 98 98 98 Oximetry 05/11/17 05/11/17 05/11/17 05:00 05:15 05:30 Temperature Pulse Rate 68 69 67 Pulse Rate [ From Monitor] Respiratory 23 23 19 Rate Blood Pressure 115/58 113/63 120/61 O2 Sat by Pulse 98 99 98 Oximetry 05/11/17 05/11/17 05/11/17 05:45 06:00 06:15 Temperature Pulse Rate 69 70 77 Pulse Rate [ From Monitor] Respiratory 23 21 18 Rate Blood Pressure 105/57 112/62 108/60 O2 Sat by Pulse 99 99 98 Oximetry 05/11/17 05/11/17 05/11/17 06:30 06:45 07:00 Temperature Pulse Rate 65 65 67 Pulse Rate [ From Monitor] Respiratory 16 20 17 Rate Blood Pressure 108/59 115/64 124/62 O2 Sat by Pulse 98 98 98 Oximetry 05/11/17 05/11/17 05/11/17 07:15 07:30 07:45 Temperature Pulse Rate 77 69 71 Pulse Rate [ From Monitor] Respiratory 15 19 20 Rate Blood Pressure 135/72 135/72 112/65 O2 Sat by Pulse 99 99 98 Oximetry 05/11/17 08:00 Temperature Pulse Rate 67 Pulse Rate [ From Monitor] Respiratory 16 Rate Blood Pressure 108/63 O2 Sat by Pulse 99 Oximetry - Labs CBC & Chem 7: 05/10/17 11:30 05/11/17 02:00 Labs: Abnormal lab results 05/10/17 05/10/17 05/10/17 Range/Units 06:11 08:40 11:30 MCH 27 L (28-32) pg RDW 15.6 H (13.2-15.2) % Plt Count 58 L (140-440) K/mm3 Lymph % (Auto) 10.6 L (13.4-35.0) % Lymph # 0.8 L (1.2-5.4) K/mm3 Seg Neutrophils % 81.5 H (40.0-70.0) % Sodium 152 H (137-145) mmol/L Chloride 120.7 H (98-107) mmol/L Carbon Dioxide 21 L (22-30) mmol/L BUN 19 H (7-17) mg/dL Glucose 151 H (65-100) mg/dL POC Glucose 213 H (70-105) Calcium 6.0 L (8.4-10.2) mg/dL 05/10/17 05/10/17 05/10/17 Range/Units 11:33 20:52 22:30 MCH (28-32) pg RDW (13.2-15.2) % Plt Count (140-440) K/mm3 Lymph % (Auto) (13.4-35.0) % Lymph # (1.2-5.4) K/mm3 Seg Neutrophils % (40.0-70.0) % Sodium 148 H (137-145) mmol/L Chloride 116.8 H (98-107) mmol/L Carbon Dioxide (22-30) mmol/L BUN (7-17) mg/dL Glucose (65-100) mg/dL POC Glucose 166 H 146 H (70-105) Calcium (8.4-10.2) mg/dL 05/10/17 05/11/17 05/11/17 Range/Units 23:46 02:00 05:09 MCH (28-32) pg RDW (13.2-15.2) % Plt Count (140-440) K/mm3 Lymph % (Auto) (13.4-35.0) % Lymph # (1.2-5.4) K/mm3 Seg Neutrophils % (40.0-70.0) % Sodium 151 H (137-145) mmol/L Chloride 119.6 H (98-107) mmol/L Carbon Dioxide (22-30) mmol/L BUN (7-17) mg/dL Glucose (65-100) mg/dL POC Glucose 134 H 155 H (70-105) Calcium (8.4-10.2) mg/dL
[2017-05-11 10:29] LABS: Hematocrit 34.1 % (30.3-42.9); Hemoglobin 10.5 gm/dl (10.1-14.3); Mean Corpuscular HGB Conc 31 % (30-34); Mean Corpuscular Hemoglobin 27 pg (28-32); Mean Corpuscular Volume 89 fl (79-97); Red Blood Count 3.84 M/mm3 (3.65-5.03); Red Cell Distribution Width 15.8 % (13.2-15.2); White Blood Count 9.5 K/mm3 (4.5-11.0)
[2017-05-11 10:35] LABS: Platelet Count 70 K/mm3 (140-440)
[2017-05-11 10:46] LABS: Anion Gap 16 mmol/L; BUN/Creatinine Ratio 16; Blood Urea Nitrogen 14 mg/dL (7-17); Carbon Dioxide 19 mmol/L (22-30); Chloride 121.5 mmol/L (98-107); Glucose 172 mg/dL (65-100); Potassium 4.2 mmol/L (3.6-5.0); Sodium 152 mmol/L (137-145)
[2017-05-11 10:51] LABS: Calcium 5.9 mg/dL (8.4-10.2)
--- NOTE | 2017-05-11 16:49 | Progress Note ---
Assessment and Plan Assessment and plan: 87 year old female came from [facility] for altered mental status, no history obtained Acute metabolic encephalopathy - could be her baseline Severe sepsis - Continue IV zosyn Hypotension Hypernatremia, hyperchloremia - Improving [place] 151 on the last BMP - will continue to monitor and increase free water Severe Dehydration - On IV fluids and NG tube feeding Dementia Acute renal failure, no baseline to compare, resolved DVT prophylaxis - on heparin Disposition -Continue ICU care The high probability of a clinically significant, sudden or life threatening deterioration of the [neurology, CV] system(s) required my full and direct attention, intervention and personal management. The aggregate critical care time was [31] minutes. This time is in addition to time spent performing reported procedures but includes the following: [x] Data Review and interpretation [x] Patient assessment and monitoring of vital signs [x] Documentation [x] Medication orders and management History Interval history: Patient was seen and evaluated this morning, patient is non-communicative, could be her baseline. Hospitalist Physical - Physical exam Narrative exam: Not in cardiopulmonary distress. The patient is obese. Vital signs as documented. Head exam is unremarkable. No scleral icterus . Neck is without jugular venous distension, thyromegaly, or carotid bruits. Lungs are clear to auscultation. Cardiac exam reveals regular rate and Rhythm. First and second heart sounds normal. No murmurs, rubs or gallops. Abdominal exam reveals normal bowel sounds, no masses, no organomegaly and no aortic enlargement. Extremities are nonedematous and both femoral and pedal pulses are normal. 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 - Constitutional Vitals: Temp Pulse Resp BP Pulse Ox 98.4 F 65 18 84/50 99 05/11/17 16:00 05/11/17 13:30 05/11/17 13:30 05/11/17 13:30 05/11/17 13:30 General appearance: Present: no acute distress, other (obtunded) Results - Labs CBC & Chem 7: 05/11/17 09:45 05/11/17 09:45 Labs: Laboratory Last Values WBC 9.5 K/mm3 (4.5-11.0) 05/11/17 09:45 RBC 3.84 M/mm3 (3.65-5.03) 05/11/17 09:45 Hgb 10.5 gm/dl (10.1-14.3) 05/11/17 09:45 Hct 34.1 % (30.3-42.9) 05/11/17 09:45 MCV 89 fl (79-97) 05/11/17 09:45 MCH 27 pg (28-32) L 05/11/17 09:45 MCHC 31 % (30-34) 05/11/17 09:45 RDW 15.8 % (13.2-15.2) H 05/11/17 09:45 Plt Count 70 K/mm3 (140-440) L 05/11/17 09:45 Lymph % (Auto) 10.6 % (13.4-35.0) L 05/10/17 11:30 [place] % (Auto) 6.2 % (0.0-7.3) 05/10/17 11:30 Eos % (Auto) 1.6 % (0.0-4.3) 05/10/17 11:30 Baso % (Auto) 0.1 % (0.0-1.8) 05/10/17 11:30 Lymph # 0.8 K/mm3 (1.2-5.4) L 05/10/17 11:30 [place] # 0.5 K/mm3 (0.0-0.8) 05/10/17 11:30 Eos # 0.1 K/mm3 (0.0-0.4) 05/10/17 11:30 Baso # 0.0 K/mm3 (0.0-0.1) 05/10/17 11:30 Seg Neutrophils % 81.5 % (40.0-70.0) H 05/10/17 11:30 Seg Neutrophils # 6.1 K/mm3 (1.8-7.7) 05/10/17 11:30 PT 16.7 Sec. (12.2-14.9) H 05/08/17 05:18 INR 1.28 (0.87-1.13) H 05/08/17 05:18 APTT 35.6 Sec. (24.2-36.6) 05/07/17 17:35 POC ABG pH 7.308 (7.35-7.45) L 05/08/17 01:19 POC ABG pCO2 39.0 (35-45) 05/08/17 01:19 POC ABG pO2 87 (80-105) 05/08/17 01:19 POC ABG HCO3 19.6 05/08/17 01:19 POC ABG Total CO2 21 05/08/17 01:19 POC ABG O2 Sat 96 05/08/17 01:19 POC ABG Base Excess -7 05/08/17 01:19 FiO2 21 % 05/08/17 01:19 Sodium 152 mmol/L (137-145) H 05/11/17 09:45 Potassium 4.2 mmol/L (3.6-5.0) 05/11/17 09:45 Chloride 121.5 mmol/L (98-107) H 05/11/17 09:45 Carbon Dioxide 19 mmol/L (22-30) L 05/11/17 09:45 Anion Gap 16 mmol/L 05/11/17 09:45 BUN 14 mg/dL (7-17) 05/11/17 09:45 Creatinine 0.9 mg/dL (0.7-1.2) 05/11/17 09:45 Estimated GFR > 60 ml/min 05/11/17 09:45 BUN/Creatinine Ratio 16 % 05/11/17 09:45 Glucose 172 mg/dL (65-100) H 05/11/17 09:45 POC Glucose 136 (70-105) H 05/11/17 12:22 Lactic Acid 3.40 mmol/L (0.7-2.0) H* 05/07/17 Unknown Calcium 5.9 mg/dL (8.4-10.2) L* 05/11/17 09:45 Magnesium 3.60 mg/dL (1.7-2.3) H 05/07/17 17:50 Total Bilirubin 0.50 mg/dL (0.1-1.2) 05/08/17 05:18 Direct Bilirubin < 0.2 mg/dL (0-0.2) 05/07/17 17:50 Indirect Bilirubin 0.3 mg/dL 05/07/17 17:50 AST 42 units/L (5-40) H 05/08/17 05:18 ALT 24 units/L (7-56) 05/08/17 05:18 Alkaline Phosphatase 86 units/L (35-129) 05/08/17 05:18 Total Creatine Kinase 1235 units/L (30-135) H 05/07/17 17:50 CK-MB (CK-2) 6.8 ng/mL (0.0-4.0) H 05/07/17 17:50 CK-MB (CK-2) Rel Index 0.5 (0-4) 05/07/17 17:50 Troponin T 0.049 ng/mL (0.00-0.029) H 05/07/17 17:50 NT-Pro-B Natriuret Pep 237.5 pg/mL (0-900) 05/07/17 17:50 Total Protein 5.5 g/dL (6.3-8.2) L 05/08/17 05:18 Albumin 3.0 g/dL (3.9-5) L 05/08/17 05:18 Albumin/Globulin Ratio 1.2 % 05/08/17 05:18 Triglycerides 213 mg/dL (2-149) H 05/07/17 17:50 Cholesterol 158 mg/dL (50-199) 05/07/17 17:50 LDL Cholesterol Direct 87 mg/dL (50-130) 05/07/17 17:50 HDL Cholesterol 29 mg/dL (40-59) L 05/07/17 17:50 Cholesterol/HDL Ratio 5.44 % 05/07/17 17:50 Amylase 26 units/L (27-131) L 05/08/17 05:18 Urine Color Straw (Yellow) 05/07/17 19:18 Urine Turbidity Turbid (Clear) 05/07/17 19:18 Urine pH 5.0 (5.0-7.0) 05/07/17 19:18 Ur Specific [place] 1.017 (1.003-1.030) 05/07/17 19:18 Urine Protein 100 mg/dl mg/dL (Negative) 05/07/17 19:18 Urine Glucose (UA) Neg mg/dL (Negative) 05/07/17 19:18 Urine Ketones Neg mg/dL (Negative) 05/07/17 19:18 Urine Blood Sm (Negative) 05/07/17 19:18 Urine Nitrite Neg (Negative) 05/07/17 19:18 Urine Bilirubin Neg (Negative) 05/07/17 19:18 Urine Urobilinogen < 2.0 mg/dL (<2.0) 05/07/17 19:18 Ur Leukocyte Esterase Mod (Negative) 05/07/17 19:18 Urine WBC (Auto) > 182.0 /HPF (0.0-6.0) H 05/07/17 19:18 Urine RBC (Auto) > 182.0 /HPF (0.0-6.0) 05/07/17 19:18 U Epithel Cells (Auto) 5.0 /HPF (0-13.0) 05/07/17 19:18 Urine Bacteria (Auto) 4+ /HPF (Negative) 05/07/17 19:18 Urine Mucus 3+ /HPF 05/07/17 19:18
[2017-05-11] MEDS ORDERED: LASIX IV ONE (18:08)
[2017-05-12] MEDS: NOVOLOG SUB-Q SCH ×4 (00:24→18:06)
[2017-05-12 06:23] LABS: Anion Gap 13 mmol/L; BUN/Creatinine Ratio 15; Blood Urea Nitrogen 15 mg/dL (7-17); Calcium 6.8 mg/dL (8.4-10.2); Carbon Dioxide 25 mmol/L (22-30); Chloride 117.7 mmol/L (98-107); Glucose 73 mg/dL (65-100); Potassium 3.9 mmol/L (3.6-5.0); Sodium 152 mmol/L (137-145)
[2017-05-12] MEDS: ZOSYN/NS 4.5GM/100ML 4.5 GM/100 ML VIAL IV SCH ×3 (06:58→21:46)
--- NOTE | 2017-05-12 13:48 | Progress Note ---
Assessment and Plan Assessment and plan: 87 year old female came from [facility] term for altered mental status, no history obtained Acute metabolic encephalopathy - could be her baseline Severe sepsis - Continue IV zosyn Hypotension Hypernatremia, hyperchloremia - Improving [place] 151 on the last BMP - will continue to monitor and increase free water Severe Dehydration - On IV fluids and NG tube feeding Dementia Acute renal failure, no baseline to compare, resolved DVT prophylaxis - on heparin Disposition -Continue ICU care The high probability of a clinically significant, sudden or life threatening deterioration of the [neurology, CV] system(s) required my full and direct attention, intervention and personal management. The aggregate critical care time was [31] minutes. This time is in addition to time spent performing reported procedures but includes the following: [x] Data Review and interpretation [x] Patient assessment and monitoring of vital signs [x] Documentation [x] Medication orders and management History Interval history: Patient was seen and evaluated this morning, patient is non-communicative, could be her baseline. Hospitalist Physical - Physical exam Narrative exam: Not in cardiopulmonary distress. The patient is obese. Vital signs as documented. Head exam is unremarkable. No scleral icterus . Neck is without jugular venous distension, thyromegaly, or carotid bruits. Lungs are clear to auscultation. Cardiac exam reveals regular rate and Rhythm. First and second heart sounds normal. No murmurs, rubs or gallops. Abdominal exam reveals normal bowel sounds, no masses, no organomegaly and no aortic enlargement. Extremities are nonedematous and both femoral and pedal pulses are normal. 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 - Constitutional Vitals: Temp Pulse Resp BP Pulse Ox 98.4 F 71 17 119/68 100 05/12/17 12:00 05/12/17 11:00 05/12/17 11:00 05/12/17 11:00 05/12/17 11:00 General appearance: Present: no acute distress, other (obtunded) Results - Labs CBC & Chem 7: 05/11/17 09:45 05/12/17 05:50 Labs: Laboratory Last Values WBC 9.5 K/mm3 (4.5-11.0) 05/11/17 09:45 RBC 3.84 M/mm3 (3.65-5.03) 05/11/17 09:45 Hgb 10.5 gm/dl (10.1-14.3) 05/11/17 09:45 Hct 34.1 % (30.3-42.9) 05/11/17 09:45 MCV 89 fl (79-97) 05/11/17 09:45 MCH 27 pg (28-32) L 05/11/17 09:45 MCHC 31 % (30-34) 05/11/17 09:45 RDW 15.8 % (13.2-15.2) H 05/11/17 09:45 Plt Count 70 K/mm3 (140-440) L 05/11/17 09:45 Lymph % (Auto) 10.6 % (13.4-35.0) L 05/10/17 11:30 [place] % (Auto) 6.2 % (0.0-7.3) 05/10/17 11:30 Eos % (Auto) 1.6 % (0.0-4.3) 05/10/17 11:30 Baso % (Auto) 0.1 % (0.0-1.8) 05/10/17 11:30 Lymph # 0.8 K/mm3 (1.2-5.4) L 05/10/17 11:30 [place] # 0.5 K/mm3 (0.0-0.8) 05/10/17 11:30 Eos # 0.1 K/mm3 (0.0-0.4) 05/10/17 11:30 Baso # 0.0 K/mm3 (0.0-0.1) 05/10/17 11:30 Seg Neutrophils % 81.5 % (40.0-70.0) H 05/10/17 11:30 Seg Neutrophils # 6.1 K/mm3 (1.8-7.7) 05/10/17 11:30 PT 16.7 Sec. (12.2-14.9) H 05/08/17 05:18 INR 1.28 (0.87-1.13) H 05/08/17 05:18 APTT 35.6 Sec. (24.2-36.6) 05/07/17 17:35 POC ABG pH 7.308 (7.35-7.45) L 05/08/17 01:19 POC ABG pCO2 39.0 (35-45) 05/08/17 01:19 POC ABG pO2 87 (80-105) 05/08/17 01:19 POC ABG HCO3 19.6 05/08/17 01:19 POC ABG Total CO2 21 05/08/17 01:19 POC ABG O2 Sat 96 05/08/17 01:19 POC ABG Base Excess -7 05/08/17 01:19 FiO2 21 % 05/08/17 01:19 Sodium 152 mmol/L (137-145) H 05/12/17 05:50 Potassium 3.9 mmol/L (3.6-5.0) 05/12/17 05:50 Chloride 117.7 mmol/L (98-107) H 05/12/17 05:50 Carbon Dioxide 25 mmol/L (22-30) 05/12/17 05:50 Anion Gap 13 mmol/L 05/12/17 05:50 BUN 15 mg/dL (7-17) 05/12/17 05:50 Creatinine 1.0 mg/dL (0.7-1.2) 05/12/17 05:50 Estimated GFR > 60 ml/min 05/12/17 05:50 BUN/Creatinine Ratio 15 % 05/12/17 05:50 Glucose 73 mg/dL (65-100) 05/12/17 05:50 POC Glucose 113 (70-105) H 05/12/17 11:55 Lactic Acid 3.40 mmol/L (0.7-2.0) H* 05/07/17 Unknown Calcium 6.8 mg/dL (8.4-10.2) L D 05/12/17 05:50 Magnesium 3.60 mg/dL (1.7-2.3) H 05/07/17 17:50 Total Bilirubin 0.50 mg/dL (0.1-1.2) 05/08/17 05:18 Direct Bilirubin < 0.2 mg/dL (0-0.2) 05/07/17 17:50 Indirect Bilirubin 0.3 mg/dL 05/07/17 17:50 AST 42 units/L (5-40) H 05/08/17 05:18 ALT 24 units/L (7-56) 05/08/17 05:18 Alkaline Phosphatase 86 units/L (35-129) 05/08/17 05:18 Total Creatine Kinase 1235 units/L (30-135) H 05/07/17 17:50 CK-MB (CK-2) 6.8 ng/mL (0.0-4.0) H 05/07/17 17:50 CK-MB (CK-2) Rel Index 0.5 (0-4) 05/07/17 17:50 Troponin T 0.049 ng/mL (0.00-0.029) H 05/07/17 17:50 NT-Pro-B Natriuret Pep 237.5 pg/mL (0-900) 05/07/17 17:50 Total Protein 5.5 g/dL (6.3-8.2) L 05/08/17 05:18 Albumin 3.0 g/dL (3.9-5) L 05/08/17 05:18 Albumin/Globulin Ratio 1.2 % 05/08/17 05:18 Triglycerides 213 mg/dL (2-149) H 05/07/17 17:50 Cholesterol 158 mg/dL (50-199) 05/07/17 17:50 LDL Cholesterol Direct 87 mg/dL (50-130) 05/07/17 17:50 HDL Cholesterol 29 mg/dL (40-59) L 05/07/17 17:50 Cholesterol/HDL Ratio 5.44 % 05/07/17 17:50 Amylase 26 units/L (27-131) L 05/08/17 05:18 Urine Color Straw (Yellow) 05/07/17 19:18 Urine Turbidity Turbid (Clear) 05/07/17 19:18 Urine pH 5.0 (5.0-7.0) 05/07/17 19:18 Ur Specific [place] 1.017 (1.003-1.030) 05/07/17 19:18 Urine Protein 100 mg/dl mg/dL (Negative) 05/07/17 19:18 Urine Glucose (UA) Neg mg/dL (Negative) 05/07/17 19:18 Urine Ketones Neg mg/dL (Negative) 05/07/17 19:18 Urine Blood Sm (Negative) 05/07/17 19:18 Urine Nitrite Neg (Negative) 05/07/17 19:18 Urine Bilirubin Neg (Negative) 05/07/17 19:18 Urine Urobilinogen < 2.0 mg/dL (<2.0) 05/07/17 19:18 Ur Leukocyte Esterase Mod (Negative) 05/07/17 19:18 Urine WBC (Auto) > 182.0 /HPF (0.0-6.0) H 05/07/17 19:18 Urine RBC (Auto) > 182.0 /HPF (0.0-6.0) 05/07/17 19:18 U Epithel Cells (Auto) 5.0 /HPF (0-13.0) 05/07/17 19:18 Urine Bacteria (Auto) 4+ /HPF (Negative) 05/07/17 19:18 Urine Mucus 3+ /HPF 05/07/17 19:18
--- NOTE | 2017-05-12 16:50 | Progress Note ---
Assessment and Plan 87 y/o female with altered mental status, found to be severely volume deplete and possible urinary tract infection. 1. Continue Free water IV and via DH tube, follow up labs from this am. 2. continue tube feeds 3. More awake again today. Hold off on MRI 4. Continue zosyn through tomorrow then switch back to rocephin 5. If beds are needed, she can be moved to a telemetry bed. Subjective Date of service: 05/12/17 Interval history: No acute events. More alert but still not speaking. No family at bedside. Objective - Constitutional Vitals: Vital Signs - 12hr 05/12/17 05/12/17 05/12/17 04:45 05:00 05:15 Temperature Pulse Rate 71 75 72 Pulse Rate [ From Monitor] Respiratory 15 17 14 Rate Blood Pressure 106/74 121/73 102/62 O2 Sat by Pulse 100 100 100 Oximetry 05/12/17 05/12/17 05/12/17 05:30 05:45 06:00 Temperature Pulse Rate 70 70 75 Pulse Rate [ From Monitor] Respiratory 17 10 L 11 L Rate Blood Pressure 102/62 109/65 98/59 O2 Sat by Pulse 100 100 99 Oximetry 05/12/17 05/12/17 05/12/17 06:15 06:30 06:45 Temperature Pulse Rate 74 73 71 Pulse Rate [ From Monitor] Respiratory 15 15 15 Rate Blood Pressure 99/53 99/53 92/50 O2 Sat by Pulse 99 100 99 Oximetry 05/12/17 05/12/17 05/12/17 07:00 07:16 07:30 Temperature Pulse Rate 68 67 70 Pulse Rate [ From Monitor] Respiratory 15 15 12 Rate Blood Pressure 84/42 90/45 84/42 O2 Sat by Pulse 99 99 100 Oximetry 05/12/17 05/12/17 05/12/17 07:46 08:00 08:15 Temperature 97.3 F L Pulse Rate 69 69 70 Pulse Rate [ 75 From Monitor] Respiratory 15 16 18 Rate Blood Pressure 113/31 84/63 73/40 O2 Sat by Pulse 100 100 100 Oximetry 05/12/17 05/12/17 05/12/17 08:30 08:46 09:00 Temperature Pulse Rate 75 62 70 Pulse Rate [ From Monitor] Respiratory 11 L 13 13 Rate Blood Pressure 121/57 121/57 73/40 O2 Sat by Pulse 100 99 100 Oximetry 05/12/17 05/12/17 05/12/17 09:16 09:30 09:45 Temperature Pulse Rate 67 69 67 Pulse Rate [ From Monitor] Respiratory 15 11 L 14 Rate Blood Pressure 116/57 116/57 124/74 O2 Sat by Pulse 100 100 100 Oximetry 05/12/17 05/12/17 05/12/17 10:00 10:15 10:30 Temperature Pulse Rate 70 66 66 Pulse Rate [ From Monitor] Respiratory 15 15 16 Rate Blood Pressure 114/65 118/67 118/61 O2 Sat by Pulse 100 100 100 Oximetry 05/12/17 05/12/17 05/12/17 10:45 11:00 11:15 Temperature Pulse Rate 67 71 68 Pulse Rate [ From Monitor] Respiratory 12 17 15 Rate Blood Pressure 119/68 119/68 113/67 O2 Sat by Pulse 99 100 100 Oximetry 05/12/17 05/12/17 05/12/17 11:30 11:45 12:00 Temperature 98.4 F Pulse Rate 71 64 64 Pulse Rate [ 65 From Monitor] Respiratory 15 17 15 Rate Blood Pressure 122/49 125/74 120/72 O2 Sat by Pulse 99 100 100 Oximetry 05/12/17 05/12/17 05/12/17 12:15 12:30 12:45 Temperature Pulse Rate 66 67 70 Pulse Rate [ From Monitor] Respiratory 14 15 13 Rate Blood Pressure 114/63 123/72 125/73 O2 Sat by Pulse 100 100 100 Oximetry 05/12/17 05/12/17 05/12/17 13:00 13:15 13:30 Temperature Pulse Rate 67 73 63 Pulse Rate [ From Monitor] Respiratory 16 14 15 Rate Blood Pressure 124/72 115/75 123/67 O2 Sat by Pulse 100 98 100 Oximetry 05/12/17 05/12/17 05/12/17 13:45 14:00 14:16 Temperature Pulse Rate 64 68 63 Pulse Rate [ From Monitor] Respiratory 16 16 14 Rate Blood Pressure 110/57 96/57 133/75 O2 Sat by Pulse 100 100 100 Oximetry 05/12/17 05/12/17 05/12/17 14:30 14:45 15:00 Temperature Pulse Rate 61 72 64 Pulse Rate [ From Monitor] Respiratory 16 12 17 Rate Blood Pressure 133/75 124/76 127/70 O2 Sat by Pulse 100 99 100 Oximetry 05/12/17 05/12/17 05/12/17 15:16 15:30 16:00 Temperature 97.3 F L Pulse Rate 68 68 Pulse Rate [ From Monitor] Respiratory 20 15 Rate Blood Pressure 127/70 129/85 O2 Sat by Pulse 100 100 Oximetry General appearance: Present: no acute distress - EENT Eyes: conjunctival injection ENT: hearing intact - Labs CBC & Chem 7: 05/11/17 09:45 05/12/17 05:50 Labs: Abnormal lab results 05/11/17 05/12/17 05/12/17 Range/Units 17:27 05:50 11:55 Sodium 152 H (137-145) mmol/L Chloride 117.7 H (98-107) mmol/L POC Glucose 111 H 113 H (70-105) Calcium 6.8 L D (8.4-10.2) mg/dL
[2017-05-12] MEDS: ARICEPT PO SCH (21:46)
[2017-05-13] MEDS: NOVOLOG SUB-Q SCH ×4 (00:57→19:16)
[2017-05-13] MEDS: ZOSYN/NS 4.5GM/100ML 4.5 GM/100 ML VIAL IV SCH ×3 (06:08→23:00)
[2017-05-13 09:47] LABS: BUN/Creatinine Ratio 25; Blood Urea Nitrogen 20 mg/dL (7-17); Calcium 7.1 mg/dL (8.4-10.2); Carbon Dioxide 21 mmol/L (22-30); Chloride 111.3 mmol/L (98-107); Glucose 83 mg/dL (65-100); Sodium 144 mmol/L (137-145)
[2017-05-13 09:49] LABS: Anion Gap 18 mmol/L; Potassium 5.8 mmol/L (3.6-5.0)
--- NOTE | 2017-05-13 12:58 | Progress Note ---
Assessment and Plan 87 y/o female with altered mental status, found to be severely volume deplete and possible urinary tract infection. 1. Continue Free water IV and via DH tube. Na closer to normal levels 2. continue tube feeds 3. More awake again today. Hold off on MRI 4. clinically stable, to improving, can change abx back to rocephin, need to discuss with pharmacy on a hard stop date for abx therapy. 5. Will sign off. Subjective Date of service: 05/13/17 Interval history: Patient transferred out of ICU. Stable. Na down to 144 this am. K is elevated. Objective - Constitutional Vitals: Vital Signs - 12hr 05/13/17 05/13/17 04:17 09:33 Temperature 97.4 F L 97.3 F L Pulse Rate 70 78 Respiratory 20 20 Rate Blood Pressure 137/76 Blood Pressure 133/65 [Right] O2 Sat by Pulse 97 99 Oximetry - Labs CBC & Chem 7: 05/11/17 09:45 05/13/17 08:54 Labs: Abnormal lab results 05/13/17 05/13/17 05/13/17 Range/Units 05:51 08:54 11:43 Potassium 5.8 H D (3.6-5.0) mmol/L Chloride 111.3 H (98-107) mmol/L Carbon Dioxide 21 L (22-30) mmol/L BUN 20 H (7-17) mg/dL POC Glucose 116 H 109 H (70-105) Calcium 7.1 L (8.4-10.2) mg/dL
[2017-05-13] MEDS ORDERED: KIONEX PO ONE (14:46)
[2017-05-13 16:04] LABS: Anion Gap 17 mmol/L; BUN/Creatinine Ratio 24; Blood Urea Nitrogen 19 mg/dL (7-17); Calcium 7.1 mg/dL (8.4-10.2); Carbon Dioxide 24 mmol/L (22-30); Chloride 111.2 mmol/L (98-107); Glucose 78 mg/dL (65-100); Potassium 4.2 mmol/L (3.6-5.0); Sodium 148 mmol/L (137-145)
--- NOTE | 2017-05-13 16:14 | XRay Report ---
FINAL REPORT PROCEDURE: XR ABDOMEN 1V AP TECHNIQUE: Abdominal radiograph, single supine AP view. HISTORY: tube placement. COMPARISON: No prior studies are available for comparison. FINDINGS: Enteric tube tip is in the proximal stomach. If this is to be used for feeding, it should be repositioned into the distal stomach and advanced by approximately 15 centimeters. Bowel gas pattern is nonobstructive. Multilevel degenerative changes of the lumbar spine are noted. IMPRESSION: Enteric tube tip is in the proximal stomach, directed towards the fundus. If this is to be used for feeding, it should be repositioned as above.
--- NOTE | 2017-05-13 17:40 | XRay Report ---
FINAL REPORT EXAM: XR ABDOMEN 1V AP HISTORY: tube placement TECHNIQUE: Supine abdomen PRIORS: None. FINDINGS: Moderate amount of stool and gas present within the colon. No evidence of colonic or small bowel dilatation. No signs of free air. No abnormal calcifications are identified. Feeding tube again identified distal tip overlying the body of the stomach. There is a right femoral central venous catheter overlying the region of the common femoral vein IMPRESSION: Feeding tube and right femoral central venous catheter Nonobstructive bowel gas pattern
[2017-05-13] MEDS: ARICEPT PO SCH (23:00)
[2017-05-14] MEDS: NOVOLOG SUB-Q SCH ×3 (00:33→12:10)
[2017-05-14] MEDS: ZOSYN/NS 4.5GM/100ML 4.5 GM/100 ML VIAL IV SCH (06:00)
--- NOTE | 2017-05-14 14:36 | Progress Note ---
Assessment and Plan Assessment and plan: 87 year old female came from retirement for altered mental status, no history obtained Acute metabolic encephalopathy - Non communicative at base line Severe sepsis - Continue IV zosyn Hypotension - Resolved Hypernatremia, hyperchloremia - Improving Na was 148 yesterday, will check today and tommorrow - will continue to monitor and increase free water Severe Dehydration - On IV fluids and NG tube feeding Dementia Acute renal failure, no baseline to compare, resolved DVT prophylaxis - on heparin Disposition -Possible Discharge tomorrow. History Interval history: Patient was seen and evaluated this morning, patient is non-communicative, that is her baseline. I have discussed the management plan with her neice who has the POA. Hospitalist Physical - Physical exam Narrative exam: Not in cardiopulmonary distress. The patient is obese. Vital signs as documented. Head exam is unremarkable. No scleral icterus . Neck is without jugular venous distension, thyromegaly, or carotid bruits. Lungs are clear to auscultation. Cardiac exam reveals regular rate and Rhythm. First and second heart sounds normal. No murmurs, rubs or gallops. Abdominal exam reveals normal bowel sounds, no masses, no organomegaly and no aortic enlargement. Extremities are nonedematous and both femoral and pedal pulses are normal. 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 - Constitutional Vitals: Temp Pulse Resp BP Pulse Ox 98.8 F 78 20 133/76 98 05/14/17 08:27 05/14/17 10:00 05/14/17 08:27 05/14/17 08:27 05/14/17 08:27 General appearance: Present: no acute distress Results - Labs CBC & Chem 7: 05/11/17 09:45 05/13/17 15:14 Labs: Laboratory Last Values WBC 9.5 K/mm3 (4.5-11.0) 05/11/17 09:45 RBC 3.84 M/mm3 (3.65-5.03) 05/11/17 09:45 Hgb 10.5 gm/dl (10.1-14.3) 05/11/17 09:45 Hct 34.1 % (30.3-42.9) 05/11/17 09:45 MCV 89 fl (79-97) 05/11/17 09:45 MCH 27 pg (28-32) L 05/11/17 09:45 MCHC 31 % (30-34) 05/11/17 09:45 RDW 15.8 % (13.2-15.2) H 05/11/17 09:45 Plt Count 70 K/mm3 (140-440) L 05/11/17 09:45 Lymph % (Auto) 10.6 % (13.4-35.0) L 05/10/17 11:30 [place] % (Auto) 6.2 % (0.0-7.3) 05/10/17 11:30 Eos % (Auto) 1.6 % (0.0-4.3) 05/10/17 11:30 Baso % (Auto) 0.1 % (0.0-1.8) 05/10/17 11:30 Lymph # 0.8 K/mm3 (1.2-5.4) L 05/10/17 11:30 [place] # 0.5 K/mm3 (0.0-0.8) 05/10/17 11:30 Eos # 0.1 K/mm3 (0.0-0.4) 05/10/17 11:30 Baso # 0.0 K/mm3 (0.0-0.1) 05/10/17 11:30 Seg Neutrophils % 81.5 % (40.0-70.0) H 05/10/17 11:30 Seg Neutrophils # 6.1 K/mm3 (1.8-7.7) 05/10/17 11:30 PT 16.7 Sec. (12.2-14.9) H 05/08/17 05:18 INR 1.28 (0.87-1.13) H 05/08/17 05:18 APTT 35.6 Sec. (24.2-36.6) 05/07/17 17:35 POC ABG pH 7.308 (7.35-7.45) L 05/08/17 01:19 POC ABG pCO2 39.0 (35-45) 05/08/17 01:19 POC ABG pO2 87 (80-105) 05/08/17 01:19 POC ABG HCO3 19.6 05/08/17 01:19 POC ABG Total CO2 21 05/08/17 01:19 POC ABG O2 Sat 96 05/08/17 01:19 POC ABG Base Excess -7 05/08/17 01:19 FiO2 21 % 05/08/17 01:19 Sodium 148 mmol/L (137-145) H 05/13/17 15:14 Potassium 4.2 mmol/L (3.6-5.0) D 05/13/17 15:14 Chloride 111.2 mmol/L (98-107) H 05/13/17 15:14 Carbon Dioxide 24 mmol/L (22-30) 05/13/17 15:14 Anion Gap 17 mmol/L 05/13/17 15:14 BUN 19 mg/dL (7-17) H 05/13/17 15:14 Creatinine 0.8 mg/dL (0.7-1.2) 05/13/17 15:14 Estimated GFR > 60 ml/min 05/13/17 15:14 BUN/Creatinine Ratio 24 % 05/13/17 15:14 Glucose 78 mg/dL (65-100) 05/13/17 15:14 POC Glucose 115 (70-105) H 05/13/17 23:40 Lactic Acid 3.40 mmol/L (0.7-2.0) H* 05/07/17 Unknown Calcium 7.1 mg/dL (8.4-10.2) L 05/13/17 15:14 Magnesium 3.60 mg/dL (1.7-2.3) H 05/07/17 17:50 Total Bilirubin 0.50 mg/dL (0.1-1.2) 05/08/17 05:18 Direct Bilirubin < 0.2 mg/dL (0-0.2) 05/07/17 17:50 Indirect Bilirubin 0.3 mg/dL 05/07/17 17:50 AST 42 units/L (5-40) H 05/08/17 05:18 ALT 24 units/L (7-56) 05/08/17 05:18 Alkaline Phosphatase 86 units/L (35-129) 05/08/17 05:18 Total Creatine Kinase 1235 units/L (30-135) H 05/07/17 17:50 CK-MB (CK-2) 6.8 ng/mL (0.0-4.0) H 05/07/17 17:50 CK-MB (CK-2) Rel Index 0.5 (0-4) 05/07/17 17:50 Troponin T 0.049 ng/mL (0.00-0.029) H 05/07/17 17:50 NT-Pro-B Natriuret Pep 237.5 pg/mL (0-900) 05/07/17 17:50 Total Protein 5.5 g/dL (6.3-8.2) L 05/08/17 05:18 Albumin 3.0 g/dL (3.9-5) L 05/08/17 05:18 Albumin/Globulin Ratio 1.2 % 05/08/17 05:18 Triglycerides 213 mg/dL (2-149) H 05/07/17 17:50 Cholesterol 158 mg/dL (50-199) 05/07/17 17:50 LDL Cholesterol Direct 87 mg/dL (50-130) 05/07/17 17:50 HDL Cholesterol 29 mg/dL (40-59) L 05/07/17 17:50 Cholesterol/HDL Ratio 5.44 % 05/07/17 17:50 Amylase 26 units/L (27-131) L 05/08/17 05:18 Urine Color Straw (Yellow) 05/07/17 19:18 Urine Turbidity Turbid (Clear) 05/07/17 19:18 Urine pH 5.0 (5.0-7.0) 05/07/17 19:18 Ur Specific [place] 1.017 (1.003-1.030) 05/07/17 19:18 Urine Protein 100 mg/dl mg/dL (Negative) 05/07/17 19:18 Urine Glucose (UA) Neg mg/dL (Negative) 05/07/17 19:18 Urine Ketones Neg mg/dL (Negative) 05/07/17 19:18 Urine Blood Sm (Negative) 05/07/17 19:18 Urine Nitrite Neg (Negative) 05/07/17 19:18 Urine Bilirubin Neg (Negative) 05/07/17 19:18 Urine Urobilinogen < 2.0 mg/dL (<2.0) 05/07/17 19:18 Ur Leukocyte Esterase Mod (Negative) 05/07/17 19:18 Urine WBC (Auto) > 182.0 /HPF (0.0-6.0) H 05/07/17 19:18 Urine RBC (Auto) > 182.0 /HPF (0.0-6.0) 05/07/17 19:18 U Epithel Cells (Auto) 5.0 /HPF (0-13.0) 05/07/17 19:18 Urine Bacteria (Auto) 4+ /HPF (Negative) 05/07/17 19:18 Urine Mucus 3+ /HPF 05/07/17 19:18
[2017-05-14 15:35] LABS: Anion Gap 12 mmol/L; BUN/Creatinine Ratio 24; Blood Urea Nitrogen 19 mg/dL (7-17); Calcium 7.6 mg/dL (8.4-10.2); Carbon Dioxide 28 mmol/L (22-30); Chloride 112.9 mmol/L (98-107); Glucose 102 mg/dL (65-100); Potassium 3.5 mmol/L (3.6-5.0); Sodium 149 mmol/L (137-145)
[2017-05-14] MEDS: ARICEPT PO SCH (22:50)
[2017-05-15 06:11] LABS: Basophils % (Auto) 0.5 % (0.0-1.8); Eosinophils % (Auto) 1.7 % (0.0-4.3); Hematocrit 33.1 % (30.3-42.9); Hemoglobin 10.4 gm/dl (10.1-14.3); Mean Corpuscular HGB Conc 31 % (30-34); Mean Corpuscular Hemoglobin 27 pg (28-32); Mean Corpuscular Volume 87 fl (79-97); Platelet Count 147 K/mm3 (140-440); Red Cell Distribution Width 15.5 % (13.2-15.2); White Blood Count 7.1 K/mm3 (4.5-11.0)
[2017-05-15] MEDS: NOVOLOG SUB-Q SCH ×5 (06:18→18:10)
[2017-05-15 06:26] LABS: Anion Gap 12 mmol/L; BUN/Creatinine Ratio 26; Blood Urea Nitrogen 18 mg/dL (7-17); Calcium 7.8 mg/dL (8.4-10.2); Carbon Dioxide 27 mmol/L (22-30); Chloride 112.3 mmol/L (98-107); Glucose 97 mg/dL (65-100); Potassium 3.6 mmol/L (3.6-5.0); Sodium 148 mmol/L (137-145)
--- NOTE | 2017-05-15 11:37 | Gastroenterology Consultation ---
<CHUCKY LIMON - Last Filed: 05/15/17 11:59> History of Present Illness - Reason for Consult Consult date: 05/15/17 PEG placement Requesting physician: ERIC GOMEZ - History of Present Illness Patient is an 87 y/o female with PMH of dementia who was admitted from the half-way for AMS. She is being treated for acute metabolic encephalopathy, sepsis, and dehydration. GI has been consulted for a PEG tube placement. This am pt was resting in bed w/o acute distress. Pt is non-communicative and unable to given history. No family at bedside. History obtained via chart review. She is currently receiving tube feedings via [place]. Past History Past Medical History: other (couldn't obtain because of altered mental status, could be her baseline) Past Surgical History: Other (couldn't obtain because of altered mental status, could be her baseline) Social history: other (couldn't obtain because of altered mental status, could be her baseline) Family history: other (couldn't obtain because of altered mental status, could be her baseline) Medications and Allergies Allergies Allergy/AdvReac Type Severity Reaction Status Date / Time No Known Allergies Allergy Unverified 05/07/17 18:15 Home Medications Medication Instructions Recorded Confirmed Last Taken Type Acetaminophen/Diphenhydramine 1 each PO Q8H PRN 05/07/17 05/07/17 Unknown History [Tylenol Pm Ex-Strength Caplet] Aspirin [Aspirin BABY CHEW TAB] 81 mg PO QDAY 05/07/17 05/07/17 Unknown History Donepezil [Aricept] 10 mg PO QDAY 05/07/17 05/07/17 Unknown History Hydrocortisone 1% [Hydrocortisone 1 applicatio TP TID 05/07/17 05/07/17 Unknown History 1% CREAM] Multivit with Minerals No.55 1 each PO QDAY 05/07/17 05/07/17 Unknown History [Centrum Flavor Burst Adult] Potassium Chloride [K-Dur] 10 meq PO QDAY 05/07/17 05/07/17 Unknown History Active Meds: Active Medications Lipase/Protease/Amylase (Joselin Childs 10,500 Unit) 1 each FEEDTUBE PRN PRN PRN Reason: For Clogged Feeding Tube Last Admin: 05/13/17 18:41 Dose: 1 each Donepezil HCl (Aricept) 10 mg PO QHS [facility] Last Admin: 05/14/17 22:50 Dose: 10 mg Insulin Aspart (Novolog) 0 units SUB-Q Q6HR [facility] PRN Reason: Protocol Last Admin: 05/15/17 08:45 Dose: Not Given Simple Syrup (Simple Syrup) 15 ml FEEDTUBE PRN PRN PRN Reason: Hypoglycemia Simple Syrup (Simple Syrup) 30 ml FEEDTUBE PRN PRN PRN Reason: Hypoglycemia Sodium Bicarbonate (Sodium Bicarbonate) 325 mg FEEDTUBE PRN PRN PRN Reason: For Clogged Feeding Tube Last Admin: 05/13/17 18:45 Dose: 325 mg Review of Systems - Review of Systems ROS unobtainable: due to mental status Exam - Constitutional Vital Signs: Temp Pulse Resp BP Pulse Ox 97.6 F 79 20 113/50 98 05/15/17 07:43 05/15/17 04:52 05/15/17 07:43 05/15/17 07:43 05/15/17 04:52 General appearance: no acute distress, other (non-verbal) - Respiratory Respiratory: bilateral: CTA - Cardiovascular Rhythm: regular Heart Sounds: Present: S1 & S2 - Gastrointestinal General gastrointestinal: Present: soft, non-distended, normal bowel sounds - Integumentary Integumentary: Present: warm, dry - Neurologic Neurological: other (unable to assess) - Labs CBC & Chem 7: 05/15/17 05:31 05/15/17 05:31 Lab Results: Laboratory Results - last 24 hr 05/14/17 05/14/17 05/14/17 07:53 11:16 14:29 WBC RBC Hgb Hct MCV MCH MCHC RDW Plt Count Lymph % (Auto) [place] % (Auto) Eos % (Auto) Baso % (Auto) Lymph # [place] # Eos # Baso # Seg Neutrophils % Seg Neutrophils # Sodium 149 H Potassium 3.5 L Chloride 112.9 H Carbon Dioxide 28 Anion Gap 12 BUN 19 H Creatinine 0.8 Estimated GFR > 60 BUN/Creatinine Ratio 24 Glucose 102 H POC Glucose 95 112 H Calcium 7.6 L 05/14/17 05/15/17 05/15/17 16:38 01:12 05:31 WBC 7.1 RBC 3.80 Hgb 10.4 Hct 33.1 MCV 87 MCH 27 L MCHC 31 RDW 15.5 H Plt Count 147 Lymph % (Auto) 18.6 [place] % (Auto) 7.5 H Eos % (Auto) 1.7 Baso % (Auto) 0.5 Lymph # 1.3 [place] # 0.5 Eos # 0.1 Baso # 0.0 Seg Neutrophils % 71.7 H Seg Neutrophils # 5.1 Sodium Potassium Chloride Carbon Dioxide Anion Gap BUN Creatinine Estimated GFR BUN/Creatinine Ratio Glucose POC Glucose 108 H 105 Calcium 05/15/17 05/15/17 05:31 05:54 WBC RBC Hgb Hct MCV MCH MCHC RDW Plt Count Lymph % (Auto) [place] % (Auto) Eos % (Auto) Baso % (Auto) Lymph # [place] # Eos # Baso # Seg Neutrophils % Seg Neutrophils # Sodium 148 H Potassium 3.6 Chloride 112.3 H Carbon Dioxide 27 Anion Gap 12 BUN 18 H Creatinine 0.7 Estimated GFR > 60 BUN/Creatinine Ratio 26 Glucose 97 POC Glucose 97 Calcium 7.8 L Assessment and Plan 1.PEG tube placement -called half-way to get family contact information- legal guardian is Jo Weston her [id number] ([phone] or [phone]) -called and discussed with guardian the nature of this procedure, details of the technique, benefits, purpose, and risks including perforation, bleeding, infection, and independent risks of anesthesia. She is wishing to hold off on PEG tube placement at this time until she can speak with hospitalist and ambulatory service representative for more information. -called and informed Dr. Gomez of family's wish to hold off on PEG placement at this time -will schedule PEG tube when family wishes to proceed and consent is given -will follow as needed <TAMIKO LOUIS - Last Filed: 05/15/17 15:02> Medications and Allergies Active Meds: Active Medications Lipase/Protease/Amylase (Pancrejusten Childs 10,500 Unit) 1 each FEEDTUBE PRN PRN PRN Reason: For Clogged Feeding Tube Last Admin: 05/13/17 18:41 Dose: 1 each Donepezil HCl (Aricept) 10 mg PO QHS [facility] Last Admin: 05/14/17 22:50 Dose: 10 mg Insulin Aspart (Novolog) 0 units SUB-Q Q6HR [facility] PRN Reason: Protocol Last Admin: 05/15/17 12:24 Dose: Not Given Simple Syrup (Simple Syrup) 15 ml FEEDTUBE PRN PRN PRN Reason: Hypoglycemia Simple Syrup (Simple Syrup) 30 ml FEEDTUBE PRN PRN PRN Reason: Hypoglycemia Sodium Bicarbonate (Sodium Bicarbonate) 325 mg FEEDTUBE PRN PRN PRN Reason: For Clogged Feeding Tube Last Admin: 05/13/17 18:45 Dose: 325 mg Exam - Constitutional Vital Signs: Temp Pulse Resp BP Pulse Ox 97.6 F 79 20 113/50 98 05/15/17 07:43 05/15/17 04:52 05/15/17 07:43 05/15/17 07:43 05/15/17 04:52 - Labs CBC & Chem 7: 05/15/17 05:31 05/15/17 05:31 Lab Results: Laboratory Results - last 24 hr 05/14/17 05/14/17 05/14/17 07:53 11:16 14:29 WBC RBC Hgb Hct MCV MCH MCHC RDW Plt Count Lymph % (Auto) [place] % (Auto) Eos % (Auto) Baso % (Auto) Lymph # [place] # Eos # Baso # Seg Neutrophils % Seg Neutrophils # Sodium 149 H Potassium 3.5 L Chloride 112.9 H Carbon Dioxide 28 Anion Gap 12 BUN 19 H Creatinine 0.8 Estimated GFR > 60 BUN/Creatinine Ratio 24 Glucose 102 H POC Glucose 95 112 H Calcium 7.6 L 05/14/17 05/15/17 05/15/17 16:38 01:12 05:31 WBC 7.1 RBC 3.80 Hgb 10.4 Hct 33.1 MCV 87 MCH 27 L MCHC 31 RDW 15.5 H Plt Count 147 Lymph % (Auto) 18.6 [place] % (Auto) 7.5 H Eos % (Auto) 1.7 Baso % (Auto) 0.5 Lymph # 1.3 [place] # 0.5 Eos # 0.1 Baso # 0.0 Seg Neutrophils % 71.7 H Seg Neutrophils # 5.1 Sodium Potassium Chloride Carbon Dioxide Anion Gap BUN Creatinine Estimated GFR BUN/Creatinine Ratio Glucose POC Glucose 108 H 105 Calcium 05/15/17 05/15/17 05:31 05:54 WBC RBC Hgb Hct MCV MCH MCHC RDW Plt Count Lymph % (Auto) [place] % (Auto) Eos % (Auto) Baso % (Auto) Lymph # [place] # Eos # Baso # Seg Neutrophils % Seg Neutrophils # Sodium 148 H Potassium 3.6 Chloride 112.3 H Carbon Dioxide 27 Anion Gap 12 BUN 18 H Creatinine 0.7 Estimated GFR > 60 BUN/Creatinine Ratio 26 Glucose 97 POC Glucose 97 Calcium 7.8 L Assessment and Plan - Patient Problems (1) Inability to swallow Current Visit: Yes Status: Acute Plan to address problem: Patient was seen and examined. PEG is recommended. Family was subsequently contacted by Chucky Limon NP and they are in agreement with PEG for tomorrow. Thank you. Tamiko Louis MD (2) Altered mental status Current Visit: Yes Status: Acute
--- NOTE | 2017-05-15 15:57 | Progress Note ---
Assessment and Plan Assessment and plan: 87 year old female came from detention for altered mental status, no history obtained Acute metabolic encephalopathy - Non communicative at base line Severe sepsis - Continue IV zosyn Hypotension - Resolved Hypernatremia, hyperchloremia - Improving Na was 148 yesterday, will check today and tommorrow - will continue to monitor and increase free water Severe Dehydration - On IV fluids and NG tube feeding - patient needs PEG tube and GI consulted Dementia Acute renal failure, no baseline to compare, resolved DVT prophylaxis - on heparin Disposition -Possible Discharge tomorrow. History Interval history: Patient was seen and evaluated this morning, patient is non-communicative, that is her baseline. I have discussed the management plan with her daughter in law Jo Weston @[phone], I have discussed with her about PEG tube and she wants to discuss with Research Fellow before she made the decision and communicated with her nurse, and the nurse will let the perianesthesia manager know. Hospitalist Physical - Physical exam Narrative exam: Not in cardiopulmonary distress. The patient is obese. Vital signs as documented. Head exam is unremarkable. No scleral icterus . Neck is without jugular venous distension, thyromegaly, or carotid bruits. Lungs are clear to auscultation. Cardiac exam reveals regular rate and Rhythm. First and second heart sounds normal. No murmurs, rubs or gallops. Abdominal NG tube feeding. Extremities are nonedematous and both femoral and pedal pulses are normal. SCREENING NURSE: Patient is not communicative, that is her baseline. - Constitutional Vitals: Temp Pulse Resp BP Pulse Ox 97.6 F 79 20 113/50 98 05/15/17 07:43 05/15/17 04:52 05/15/17 07:43 05/15/17 07:43 05/15/17 04:52 General appearance: Present: no acute distress Results - Labs CBC & Chem 7: 05/15/17 05:31 05/15/17 05:31 Labs: Laboratory Last Values WBC 7.1 K/mm3 (4.5-11.0) 05/15/17 05:31 RBC 3.80 M/mm3 (3.65-5.03) 05/15/17 05:31 Hgb 10.4 gm/dl (10.1-14.3) 05/15/17 05:31 Hct 33.1 % (30.3-42.9) 05/15/17 05:31 MCV 87 fl (79-97) 05/15/17 05:31 MCH 27 pg (28-32) L 05/15/17 05:31 MCHC 31 % (30-34) 05/15/17 05:31 RDW 15.5 % (13.2-15.2) H 05/15/17 05:31 Plt Count 147 K/mm3 (140-440) 05/15/17 05:31 Lymph % (Auto) 18.6 % (13.4-35.0) 05/15/17 05:31 [place] % (Auto) 7.5 % (0.0-7.3) H 05/15/17 05:31 Eos % (Auto) 1.7 % (0.0-4.3) 05/15/17 05:31 Baso % (Auto) 0.5 % (0.0-1.8) 05/15/17 05:31 Lymph # 1.3 K/mm3 (1.2-5.4) 05/15/17 05:31 [place] # 0.5 K/mm3 (0.0-0.8) 05/15/17 05:31 Eos # 0.1 K/mm3 (0.0-0.4) 05/15/17 05:31 Baso # 0.0 K/mm3 (0.0-0.1) 05/15/17 05:31 Seg Neutrophils % 71.7 % (40.0-70.0) H 05/15/17 05:31 Seg Neutrophils # 5.1 K/mm3 (1.8-7.7) 05/15/17 05:31 PT 16.7 Sec. (12.2-14.9) H 05/08/17 05:18 INR 1.28 (0.87-1.13) H 05/08/17 05:18 APTT 35.6 Sec. (24.2-36.6) 05/07/17 17:35 POC ABG pH 7.308 (7.35-7.45) L 05/08/17 01:19 POC ABG pCO2 39.0 (35-45) 05/08/17 01:19 POC ABG pO2 87 (80-105) 05/08/17 01:19 POC ABG HCO3 19.6 05/08/17 01:19 POC ABG Total CO2 21 05/08/17 01:19 POC ABG O2 Sat 96 05/08/17 01:19 POC ABG Base Excess -7 05/08/17 01:19 FiO2 21 % 05/08/17 01:19 Sodium 148 mmol/L (137-145) H 05/15/17 05:31 Potassium 3.6 mmol/L (3.6-5.0) 05/15/17 05:31 Chloride 112.3 mmol/L (98-107) H 05/15/17 05:31 Carbon Dioxide 27 mmol/L (22-30) 05/15/17 05:31 Anion Gap 12 mmol/L 05/15/17 05:31 BUN 18 mg/dL (7-17) H 05/15/17 05:31 Creatinine 0.7 mg/dL (0.7-1.2) 05/15/17 05:31 Estimated GFR > 60 ml/min 05/15/17 05:31 BUN/Creatinine Ratio 26 % 05/15/17 05:31 Glucose 97 mg/dL (65-100) 05/15/17 05:31 POC Glucose 97 (70-105) 05/15/17 05:54 Lactic Acid 3.40 mmol/L (0.7-2.0) H* 05/07/17 Unknown Calcium 7.8 mg/dL (8.4-10.2) L 05/15/17 05:31 Magnesium 3.60 mg/dL (1.7-2.3) H 05/07/17 17:50 Total Bilirubin 0.50 mg/dL (0.1-1.2) 05/08/17 05:18 Direct Bilirubin < 0.2 mg/dL (0-0.2) 05/07/17 17:50 Indirect Bilirubin 0.3 mg/dL 05/07/17 17:50 AST 42 units/L (5-40) H 05/08/17 05:18 ALT 24 units/L (7-56) 05/08/17 05:18 Alkaline Phosphatase 86 units/L (35-129) 05/08/17 05:18 Total Creatine Kinase 1235 units/L (30-135) H 05/07/17 17:50 CK-MB (CK-2) 6.8 ng/mL (0.0-4.0) H 05/07/17 17:50 CK-MB (CK-2) Rel Index 0.5 (0-4) 05/07/17 17:50 Troponin T 0.049 ng/mL (0.00-0.029) H 05/07/17 17:50 NT-Pro-B Natriuret Pep 237.5 pg/mL (0-900) 05/07/17 17:50 Total Protein 5.5 g/dL (6.3-8.2) L 05/08/17 05:18 Albumin 3.0 g/dL (3.9-5) L 05/08/17 05:18 Albumin/Globulin Ratio 1.2 % 05/08/17 05:18 Triglycerides 213 mg/dL (2-149) H 05/07/17 17:50 Cholesterol 158 mg/dL (50-199) 05/07/17 17:50 LDL Cholesterol Direct 87 mg/dL (50-130) 05/07/17 17:50 HDL Cholesterol 29 mg/dL (40-59) L 05/07/17 17:50 Cholesterol/HDL Ratio 5.44 % 05/07/17 17:50 Amylase 26 units/L (27-131) L 05/08/17 05:18 Urine Color Straw (Yellow) 05/07/17 19:18 Urine Turbidity Turbid (Clear) 05/07/17 19:18 Urine pH 5.0 (5.0-7.0) 05/07/17 19:18 Ur Specific [place] 1.017 (1.003-1.030) 05/07/17 19:18 Urine Protein 100 mg/dl mg/dL (Negative) 05/07/17 19:18 Urine Glucose (UA) Neg mg/dL (Negative) 05/07/17 19:18 Urine Ketones Neg mg/dL (Negative) 05/07/17 19:18 Urine Blood Sm (Negative) 05/07/17 19:18 Urine Nitrite Neg (Negative) 05/07/17 19:18 Urine Bilirubin Neg (Negative) 05/07/17 19:18 Urine Urobilinogen < 2.0 mg/dL (<2.0) 05/07/17 19:18 Ur Leukocyte Esterase Mod (Negative) 05/07/17 19:18 Urine WBC (Auto) > 182.0 /HPF (0.0-6.0) H 05/07/17 19:18 Urine RBC (Auto) > 182.0 /HPF (0.0-6.0) 05/07/17 19:18 U Epithel Cells (Auto) 5.0 /HPF (0-13.0) 05/07/17 19:18 Urine Bacteria (Auto) 4+ /HPF (Negative) 05/07/17 19:18 Urine Mucus 3+ /HPF 05/07/17 19:18
[2017-05-15 16:17] LABS: INR 0.95 (0.87-1.13)
[2017-05-15] MEDS: ARICEPT PO SCH (21:14)
[2017-05-16] MEDS: NOVOLOG SUB-Q SCH ×3 (02:04→18:02)
[2017-05-16 06:01] LABS: Anion Gap 15 mmol/L; BUN/Creatinine Ratio 26; Blood Urea Nitrogen 18 mg/dL (7-17); Carbon Dioxide 27 mmol/L (22-30); Glucose 74 mg/dL (65-100); Potassium 3.7 mmol/L (3.6-5.0); Sodium 149 mmol/L (137-145)
--- NOTE | 2017-05-16 09:09 | Progress Note ---
Assessment and Plan Assessment and plan: --Severe dementia; poor oral intake, PEG tube placement, GI following --Metabolic encephalopathy; continue supportive care --Severe sepsis Due to UTI, continue IV antibiotics, follow cultures --Hypotension; at the time of admission, corrected --Severe dehydration/hyponatremia, improved --Acute renal failure; vasomotor nephropathy, corrected --DVT prophylaxis;SCD --Full CODE STATUS --DC planning to case management History Interval history: Patient seen and examined medical records reviewed Patient is scheduled for PEG tube placement No new events reported by the nursing staff And is noncommunicative/baseline Hospitalist Physical - Constitutional Vitals: Temp Pulse Resp BP Pulse Ox 98.6 F 83 18 137/67 96 05/16/17 08:54 05/16/17 08:54 05/16/17 08:54 05/16/17 08:54 05/16/17 08:54 General appearance: Present: no acute distress, well-nourished, obese - EENT Eyes: Present: PERRL, EOM intact - Neck Neck: Present: supple, normal ROM - Respiratory Respiratory effort: normal Respiratory: bilateral: diminished, rhonchi, negative: rales, wheezing - Cardiovascular Rhythm: regular Heart Sounds: Present: S1 & S2 - Extremities Extremities: no ischemia Extremity abnormal: edema - Abdominal General gastrointestinal: soft, non-tender, non-distended, normal bowel sounds - Integumentary Integumentary: Present: clear, warm - Psychiatric Psychiatric: other (noncommunicative) - Neurologic Neurologic: other (noncommunicative) Results - Labs CBC & Chem 7: 05/15/17 05:31 05/16/17 04:00 Labs: Laboratory Last Values WBC 7.1 K/mm3 (4.5-11.0) 05/15/17 05:31 RBC 3.80 M/mm3 (3.65-5.03) 05/15/17 05:31 Hgb 10.4 gm/dl (10.1-14.3) 05/15/17 05:31 Hct 33.1 % (30.3-42.9) 05/15/17 05:31 MCV 87 fl (79-97) 05/15/17 05:31 MCH 27 pg (28-32) L 05/15/17 05:31 MCHC 31 % (30-34) 05/15/17 05:31 RDW 15.5 % (13.2-15.2) H 05/15/17 05:31 Plt Count 147 K/mm3 (140-440) 05/15/17 05:31 Lymph % (Auto) 18.6 % (13.4-35.0) 05/15/17 05:31 [place] % (Auto) 7.5 % (0.0-7.3) H 05/15/17 05:31 Eos % (Auto) 1.7 % (0.0-4.3) 05/15/17 05:31 Baso % (Auto) 0.5 % (0.0-1.8) 05/15/17 05:31 Lymph # 1.3 K/mm3 (1.2-5.4) 05/15/17 05:31 [place] # 0.5 K/mm3 (0.0-0.8) 05/15/17 05:31 Eos # 0.1 K/mm3 (0.0-0.4) 05/15/17 05:31 Baso # 0.0 K/mm3 (0.0-0.1) 05/15/17 05:31 Seg Neutrophils % 71.7 % (40.0-70.0) H 05/15/17 05:31 Seg Neutrophils # 5.1 K/mm3 (1.8-7.7) 05/15/17 05:31 PT 13.2 Sec. (12.2-14.9) 05/15/17 15:44 INR 0.95 (0.87-1.13) 05/15/17 15:44 APTT 35.6 Sec. (24.2-36.6) 05/07/17 17:35 POC ABG pH 7.308 (7.35-7.45) L 05/08/17 01:19 POC ABG pCO2 39.0 (35-45) 05/08/17 01:19 POC ABG pO2 87 (80-105) 05/08/17 01:19 POC ABG HCO3 19.6 05/08/17 01:19 POC ABG Total CO2 21 05/08/17 01:19 POC ABG O2 Sat 96 05/08/17 01:19 POC ABG Base Excess -7 05/08/17 01:19 FiO2 21 % 05/08/17 01:19 Sodium 149 mmol/L (137-145) H 05/16/17 04:00 Potassium 3.7 mmol/L (3.6-5.0) 05/16/17 04:00 Chloride 111.0 mmol/L (98-107) H 05/16/17 04:00 Carbon Dioxide 27 mmol/L (22-30) 05/16/17 04:00 Anion Gap 15 mmol/L 05/16/17 04:00 BUN 18 mg/dL (7-17) H 05/16/17 04:00 Creatinine 0.7 mg/dL (0.7-1.2) 05/16/17 04:00 Estimated GFR > 60 ml/min 05/16/17 04:00 BUN/Creatinine Ratio 26 % 05/16/17 04:00 Glucose 74 mg/dL (65-100) 05/16/17 04:00 POC Glucose 76 (70-105) 05/16/17 05:55 Lactic Acid 3.40 mmol/L (0.7-2.0) H* 05/07/17 Unknown Calcium 8.0 mg/dL (8.4-10.2) L 05/16/17 04:00 Magnesium 3.60 mg/dL (1.7-2.3) H 05/07/17 17:50 Total Bilirubin 0.50 mg/dL (0.1-1.2) 05/08/17 05:18 Direct Bilirubin < 0.2 mg/dL (0-0.2) 05/07/17 17:50 Indirect Bilirubin 0.3 mg/dL 05/07/17 17:50 AST 42 units/L (5-40) H 05/08/17 05:18 ALT 24 units/L (7-56) 05/08/17 05:18 Alkaline Phosphatase 86 units/L (35-129) 05/08/17 05:18 Total Creatine Kinase 1235 units/L (30-135) H 05/07/17 17:50 CK-MB (CK-2) 6.8 ng/mL (0.0-4.0) H 05/07/17 17:50 CK-MB (CK-2) Rel Index 0.5 (0-4) 05/07/17 17:50 Troponin T 0.049 ng/mL (0.00-0.029) H 05/07/17 17:50 NT-Pro-B Natriuret Pep 237.5 pg/mL (0-900) 05/07/17 17:50 Total Protein 5.5 g/dL (6.3-8.2) L 05/08/17 05:18 Albumin 3.0 g/dL (3.9-5) L 05/08/17 05:18 Albumin/Globulin Ratio 1.2 % 05/08/17 05:18 Triglycerides 213 mg/dL (2-149) H 05/07/17 17:50 Cholesterol 158 mg/dL (50-199) 05/07/17 17:50 LDL Cholesterol Direct 87 mg/dL (50-130) 05/07/17 17:50 HDL Cholesterol 29 mg/dL (40-59) L 05/07/17 17:50 Cholesterol/HDL Ratio 5.44 % 05/07/17 17:50 Amylase 26 units/L (27-131) L 05/08/17 05:18 Urine Color Straw (Yellow) 05/07/17 19:18 Urine Turbidity Turbid (Clear) 05/07/17 19:18 Urine pH 5.0 (5.0-7.0) 05/07/17 19:18 Ur Specific [place] 1.017 (1.003-1.030) 05/07/17 19:18 Urine Protein 100 mg/dl mg/dL (Negative) 05/07/17 19:18 Urine Glucose (UA) Neg mg/dL (Negative) 05/07/17 19:18 Urine Ketones Neg mg/dL (Negative) 05/07/17 19:18 Urine Blood Sm (Negative) 05/07/17 19:18 Urine Nitrite Neg (Negative) 05/07/17 19:18 Urine Bilirubin Neg (Negative) 05/07/17 19:18 Urine Urobilinogen < 2.0 mg/dL (<2.0) 05/07/17 19:18 Ur Leukocyte Esterase Mod (Negative) 05/07/17 19:18 Urine WBC (Auto) > 182.0 /HPF (0.0-6.0) H 05/07/17 19:18 Urine RBC (Auto) > 182.0 /HPF (0.0-6.0) 05/07/17 19:18 U Epithel Cells (Auto) 5.0 /HPF (0-13.0) 05/07/17 19:18 Urine Bacteria (Auto) 4+ /HPF (Negative) 05/07/17 19:18 Urine Mucus 3+ /HPF 05/07/17 19:18
[2017-05-16] MEDS: NACL 0.9% 1000 ML 1,000 ML IV SCH (13:45)
[2017-05-16] MEDS ORDERED: ANCEF/STERILE WATER 2 GM/20 ML 2 GM/20 ML SYRINGE IV NR (14:00)
--- NOTE | 2017-05-16 14:28 | Event Note ---
Date: 05/16/17 The patient was brought to the GI lab for PEG, but the family with POA could not be reached by phone after considerable effort for consent for the procedure and consent for anesthesia. Will reschedule once they can be reached for formal consent.
[2017-05-16] MEDS ORDERED: ZEMURON IV ONE (19:30)
[2017-05-16] MEDS: ARICEPT PO SCH (23:04)
[2017-05-17] MEDS: NOVOLOG SUB-Q SCH ×3 (00:13→16:29)
[2017-05-17] MEDS: NACL 0.9% 1000 ML 1,000 ML IV SCH ×3 (00:20→22:39)
--- NOTE | 2017-05-17 09:15 | Event Note ---
Date: 05/17/17 I called the patient's POA, Jo Weston and discussed PEG at great length. She is in agreement and understands the details of the technique, purpose, alternatives and risks including but not limited to bleeding, perforation, infection, cardiopulmonary arrest.
--- NOTE | 2017-05-17 09:57 | Anesthesia Consultation ---
Anesthesia Consult and Med Hx Date of service: 05/17/17 - Airway Anesthetic Teeth Evaluation: Poor (many missing, poor dentition) ROM Head & Neck: Inadequate Mental/Hyoid Distance: Adequate (unable to determine MP due to patient uncooperative) Intubation Access Assessment: Probably Good - Pulmonary Exam CTA: Yes - Cardiac Exam Cardiac Exam: RRR - Pre-Operative Health Status ASA Pre-Surgery Classification: ASA4 Proposed Anesthetic Plan: MAC - Pulmonary Hx Smoking: No Hx Sleep Apnea: Yes - Cardiovascular System Hx Hypertension: Yes Hx Peripheral Vascular Disease: Yes - Central Nervous System Hx Psychiatric Problems: Yes (severe dementia, depression) - Gastrointestinal Hx Gastroesophageal Reflux Disease: No - Endocrine Hx Renal Disease: Yes (acute renal failure) Hx Insulin Dependent Diabetes: Yes - Hematic Hx Anemia: No Hx Sickle Cell Disease: No - Other Systems Hx Alcohol Use: No Hx Substance Use: No Hx Cancer: No Hx Obesity: Yes - Additional Comments Anesthesia Medical History Comments: Patient present 05/08/17 with hypernatremia and hyperchloremia secondary to severe sepsis due to UTI. She is non-verbal at baseline. Uncooperative in AW assessment.
--- NOTE | 2017-05-17 09:58 | Anesthesia Day of Surgery ---
Anesthesia Day of Surgery - Day of Surgery Patient Examined: Yes Patient H&P Reviewed: Yes Patient is NPO: Yes
[2017-05-17] MEDS ORDERED: ANCEF/STERILE WATER 2 GM/20 ML 2 GM/20 ML SYRINGE IV NR (10:00)
[2017-05-17] MEDS ORDERED: ANCEF/STERILE WATER 2 GM/20 ML 2 GM/20 ML SYRINGE IV ONE (10:23)
[2017-05-17] MEDS ORDERED: XYLOCAINE MPF 2% ONE (10:30)
[2017-05-17] MEDS ORDERED: AMIDATE IV ONE (10:34)
--- NOTE | 2017-05-17 11:01 | Operative Report ---
Operative Report Operative Report: Date of procedure: 05/17/2017 Preprocedure diagnosis: Inability to swallow Postprocedure diagnosis: Same Endoscopist: Hector Gil M.D. Procedure: Percutaneous Endoscopic Gastrostomy Medications: Propofol per anesthesia. See separate records for details. Ancef 2 g IV. Estimated blood loss: 0 After careful discussion of the nature and purpose of the procedure as well as details of the technique, risks, benefits, and alternatives consent was obtained from the patient's family. The patient was placed in the supine position and medicated per anesthesia. The tip of the [employer] 570 EQ videoscope was carefully passed for him under direct vision into the esophagus and advanced into the stomach. The scope was then advanced to the pylorus into the duodenum. The descending duodenum duodenal bulb and pylorus were normal. The scope was then withdrawn into the antrum and the stomach insufflated with air. The antrum was normal. The scope was then retroflexed and partially withdrawn. The cardia, fundus,and body were normal. After further insufflation of the stomach, a suitable gastrostomy site was selected by transillumination of the stomach, percutaneous compression and demonstration of good opposition of the stomach and abdominal wall. The abdomen was prepped and draped in sterile fashion. The needle and catheter were then inserted percutaneously into the stomach without difficulty under endoscopic observation. The needle was withdrawn followed by insertion of the guidewire through the catheter. The guidewire was grasped with the snare in position by total withdrawal of the endoscope. An EndoVive pull gastrostomy, 20 gauge, was pulled into place from the abdominal side of the wire to a snug fit. The external bumper was applied and the external marking was at 4 cm from the internal bumper. The site was again dressed in sterile fashion and the procedure completed. The procedures was well-tolerated Conclusions: Status post percutaneous endoscopic gastrostomy Plan: Postoperative orders on chart Sign electronically: Hector Gil M.D.
[2017-05-17] MEDS ORDERED: DIPRIVAN 10 MG/ML IV ONE (11:14)
--- NOTE | 2017-05-17 19:41 | Progress Note ---
Assessment and Plan Assessment and plan: --s/p PEG placement; start tube feeding per protocol Closely monitor --Severe dementia; poor oral intake, tube feeding --Metabolic encephalopathy; continue supportive care --Severe sepsis Due to UTI, continue IV antibiotics, follow cultures --Hypotension; at the time of admission, corrected --Severe dehydration/hyponatremia, improved --Acute renal failure; vasomotor nephropathy, corrected --DVT prophylaxis;SCD --Full CODE STATUS --DC planning to case management Hospital transferred to SNF tomorrow if stable History Interval history: Patient received PEG tube today Tolerated the procedure well No new complaints Hospitalist Physical - Constitutional Vitals: Temp Pulse Resp BP Pulse Ox 98.8 F 83 20 147/85 100 05/17/17 16:54 05/17/17 16:54 05/17/17 16:54 05/17/17 16:54 05/17/17 16:54 General appearance: Present: no acute distress, well-nourished, obese - EENT Eyes: Present: PERRL, EOM intact - Neck Neck: Present: supple, normal ROM - Respiratory Respiratory effort: normal Respiratory: bilateral: diminished, negative: rales, rhonchi, wheezing - Cardiovascular Rhythm: regular Heart Sounds: Present: S1 & S2 - Extremities Extremities: no ischemia, No edema - Abdominal General gastrointestinal: soft, non-tender, non-distended, normal bowel sounds, other (PEG in place) - Integumentary Integumentary: Present: clear, warm - Psychiatric Psychiatric: other (noncommunicative) - Neurologic Neurologic: other (noncommunicative) Results - Labs CBC & Chem 7: 05/15/17 05:31 05/16/17 04:00 Labs: Laboratory Last Values WBC 7.1 K/mm3 (4.5-11.0) 05/15/17 05:31 RBC 3.80 M/mm3 (3.65-5.03) 05/15/17 05:31 Hgb 10.4 gm/dl (10.1-14.3) 05/15/17 05:31 Hct 33.1 % (30.3-42.9) 05/15/17 05:31 MCV 87 fl (79-97) 05/15/17 05:31 MCH 27 pg (28-32) L 05/15/17 05:31 MCHC 31 % (30-34) 05/15/17 05:31 RDW 15.5 % (13.2-15.2) H 05/15/17 05:31 Plt Count 147 K/mm3 (140-440) 05/15/17 05:31 Lymph % (Auto) 18.6 % (13.4-35.0) 05/15/17 05:31 Gray % (Auto) 7.5 % (0.0-7.3) H 05/15/17 05:31 Eos % (Auto) 1.7 % (0.0-4.3) 05/15/17 05:31 Baso % (Auto) 0.5 % (0.0-1.8) 05/15/17 05:31 Lymph # 1.3 K/mm3 (1.2-5.4) 05/15/17 05:31 Gray # 0.5 K/mm3 (0.0-0.8) 05/15/17 05:31 Eos # 0.1 K/mm3 (0.0-0.4) 05/15/17 05:31 Baso # 0.0 K/mm3 (0.0-0.1) 05/15/17 05:31 Seg Neutrophils % 71.7 % (40.0-70.0) H 05/15/17 05:31 Seg Neutrophils # 5.1 K/mm3 (1.8-7.7) 05/15/17 05:31 PT 13.2 Sec. (12.2-14.9) 05/15/17 15:44 INR 0.95 (0.87-1.13) 05/15/17 15:44 APTT 35.6 Sec. (24.2-36.6) 05/07/17 17:35 POC ABG pH 7.308 (7.35-7.45) L 05/08/17 01:19 POC ABG pCO2 39.0 (35-45) 05/08/17 01:19 POC ABG pO2 87 (80-105) 05/08/17 01:19 POC ABG HCO3 19.6 05/08/17 01:19 POC ABG Total CO2 21 05/08/17 01:19 POC ABG O2 Sat 96 05/08/17 01:19 POC ABG Base Excess -7 05/08/17 01:19 FiO2 21 % 05/08/17 01:19 Sodium 149 mmol/L (137-145) H 05/16/17 04:00 Potassium 3.7 mmol/L (3.6-5.0) 05/16/17 04:00 Chloride 111.0 mmol/L (98-107) H 05/16/17 04:00 Carbon Dioxide 27 mmol/L (22-30) 05/16/17 04:00 Anion Gap 15 mmol/L 05/16/17 04:00 BUN 18 mg/dL (7-17) H 05/16/17 04:00 Creatinine 0.7 mg/dL (0.7-1.2) 05/16/17 04:00 Estimated GFR > 60 ml/min 05/16/17 04:00 BUN/Creatinine Ratio 26 % 05/16/17 04:00 Glucose 74 mg/dL (65-100) 05/16/17 04:00 POC Glucose 93 (70-105) 05/17/17 18:58 Lactic Acid 3.40 mmol/L (0.7-2.0) H* 05/07/17 Unknown Calcium 8.0 mg/dL (8.4-10.2) L 05/16/17 04:00 Magnesium 3.60 mg/dL (1.7-2.3) H 05/07/17 17:50 Total Bilirubin 0.50 mg/dL (0.1-1.2) 05/08/17 05:18 Direct Bilirubin < 0.2 mg/dL (0-0.2) 05/07/17 17:50 Indirect Bilirubin 0.3 mg/dL 05/07/17 17:50 AST 42 units/L (5-40) H 05/08/17 05:18 ALT 24 units/L (7-56) 05/08/17 05:18 Alkaline Phosphatase 86 units/L (35-129) 05/08/17 05:18 Total Creatine Kinase 1235 units/L (30-135) H 05/07/17 17:50 CK-MB (CK-2) 6.8 ng/mL (0.0-4.0) H 05/07/17 17:50 CK-MB (CK-2) Rel Index 0.5 (0-4) 05/07/17 17:50 Troponin T 0.049 ng/mL (0.00-0.029) H 05/07/17 17:50 NT-Pro-B Natriuret Pep 237.5 pg/mL (0-900) 05/07/17 17:50 Total Protein 5.5 g/dL (6.3-8.2) L 05/08/17 05:18 Albumin 3.0 g/dL (3.9-5) L 05/08/17 05:18 Albumin/Globulin Ratio 1.2 % 05/08/17 05:18 Triglycerides 213 mg/dL (2-149) H 05/07/17 17:50 Cholesterol 158 mg/dL (50-199) 05/07/17 17:50 LDL Cholesterol Direct 87 mg/dL (50-130) 05/07/17 17:50 HDL Cholesterol 29 mg/dL (40-59) L 05/07/17 17:50 Cholesterol/HDL Ratio 5.44 % 05/07/17 17:50 Amylase 26 units/L (27-131) L 05/08/17 05:18 Urine Color Straw (Yellow) 05/07/17 19:18 Urine Turbidity Turbid (Clear) 05/07/17 19:18 Urine pH 5.0 (5.0-7.0) 05/07/17 19:18 Ur Specific [place] 1.017 (1.003-1.030) 05/07/17 19:18 Urine Protein 100 mg/dl mg/dL (Negative) 05/07/17 19:18 Urine Glucose (UA) Neg mg/dL (Negative) 05/07/17 19:18 Urine Ketones Neg mg/dL (Negative) 05/07/17 19:18 Urine Blood Sm (Negative) 05/07/17 19:18 Urine Nitrite Neg (Negative) 05/07/17 19:18 Urine Bilirubin Neg (Negative) 05/07/17 19:18 Urine Urobilinogen < 2.0 mg/dL (<2.0) 05/07/17 19:18 Ur Leukocyte Esterase Mod (Negative) 05/07/17 19:18 Urine WBC (Auto) > 182.0 /HPF (0.0-6.0) H 05/07/17 19:18 Urine RBC (Auto) > 182.0 /HPF (0.0-6.0) 05/07/17 19:18 U Epithel Cells (Auto) 5.0 /HPF (0-13.0) 05/07/17 19:18 Urine Bacteria (Auto) 4+ /HPF (Negative) 05/07/17 19:18 Urine Mucus 3+ /HPF 05/07/17 19:18
[2017-05-17] MEDS ORDERED: SIMPLE SYRUP FEEDTUBE PRN (19:58)
[2017-05-17] MEDS ORDERED: PANCREAZE DR 10,500 UNIT FEEDTUBE PRN (19:58)
[2017-05-17] MEDS ORDERED: SODIUM BICARBONATE FEEDTUBE PRN (19:58)
[2017-05-17] MEDS: ARICEPT PO SCH (22:40)
[2017-05-18] MEDS: NOVOLOG SUB-Q SCH ×3 (00:19→07:41)
--- NOTE | 2017-05-18 10:18 | Gastroenterology Progress Note ---
Assessment and Plan - Patient Problems (1) Inability to swallow Current Visit: Yes Status: Acute Plan to address problem: S/p PEG. Doing well on tube feeds overnight. Will s/o at this point. Home/ placement at your discretion. Thank you. (2) Altered mental status Current Visit: Yes Status: Acute Subjective Date of service: 05/18/17 Principal diagnosis: inability to swallow Interval history: The patient is non verbal. Objective - Constitutional Vitals: Temp Pulse Resp BP Pulse Ox 99.1 F 88 18 116/51 98 05/18/17 08:54 05/18/17 08:54 05/18/17 08:54 05/18/17 08:54 05/18/17 08:54 General appearance: no acute distress - Neck Neck: supple, normal ROM - Respiratory Respiratory effort: normal Respiratory: bilateral: CTA - Cardiovascular Rhythm: regular - Gastrointestinal General gastrointestinal: Present: soft, non-tender, non-distended, normal bowel sounds, other (G tube site clean and dry) - Neurologic Neurological: disoriented - Labs CBC & Chem 7: 05/15/17 05:31 05/16/17 04:00 Labs: Laboratory Results - last 24 hr 05/17/17 05/17/17 05/18/17 12:23 18:58 00:17 POC Glucose 81 93 105 05/18/17 07:12 POC Glucose 88
[2017-05-18 12:12] VITALS: BP 120/72
[2017-05-18] MEDS ORDERED: SIMPLE SYRUP FEEDTUBE PRN ×2 (12:47)
[2017-05-18] MEDS ORDERED: SODIUM BICARBONATE FEEDTUBE PRN (12:47)
[2017-05-18] MEDS ORDERED: PANCREAZE DR 10,500 UNIT FEEDTUBE PRN (12:47)
--- NOTE | 2017-05-18 14:31 | Discharge Summary ---
Providers - Providers Date of Admission: 05/07/17 18:47 Date of discharge: 05/18/17 Attending physician: FLORENCIA BEASLEY 05/08/17 10:32 Consult to Dietitian/Nutrition [CONS] Stat Physician Instructions: Reason For Exam: Reason for Consult: Write/Manage Tube Feeding 05/15/17 10:06 Consult to Physician [CONS] Routine Consulting Provider: TAMIKO LOUIS Reason For Exam: Severe dementia, severe dehydration, need PEG Place consult to:: GI Notified:: riley Was contact made?: Yes If yes, spoke with:: riley Time called:: 11:08 05/15/17 10:07 Speech Therapy Evaluation and Treat [CONS] Routine Reason For Exam: dementia 05/15/17 15:21 Physical Therapy Evaluation and Treat [CONS] Routine Comment: Reason For Exam: EVAL AND TREAT/SKILL TO RETURN TO SNF 05/15/17 15:22 Occupational Therapy Evaluate and Treat [CONS] Routine Comment: Reason For Exam: EVAL & TREAT/SKILL LEVEL TO RETURN TO SNF 05/17/17 19:58 Consult to Dietitian/Nutrition [CONS] Routine Physician Instructions: Assess nutrtn needs, initiate, modify, manage TF Reason For Exam: Reason for Consult: Write/Manage Tube Feeding Reason for Consult: Write/Manage Tube Feeding Primary care physician: MANUFACTURER'S REPRESENTATIVE Hospitalization Reason for admission: altered level of consciousness Condition: Stable Procedures: PEG tube placement Hospital course: 87-year-old -[place] female patient was sent from shelter with altered level of consciousness, patient was evaluated in the emergency room noted to be in acute respiration failure requiring intubation, sepsis and septic shock, admitted to ICU symptomatically managed She was evaluated by pulmonary critical, medications were optimized, successfully extubated, transferred to the medical floor Patient was managed with antibiotics and cultures were followed Has dysphagia unable to take oral nutrition, speech and swallow has evaluated the patient, seen by GI and underwent PEG tube placement yesterday Patient started on tube feeding, and today's comfortable, No new complaints, vital signs stable Hemodynamically and clinically stable for discharge and transfer back to shelter Discharge diagnosis; --Dysphagia s/p PEG placement; --Severe dementia; poor oral intake, tube feeding --Metabolic encephalopathy; supportive care --Severe sepsis Due to UTI, received antibiotics, --Hypotension; at the time of admission, corrected --Severe dehydration/hyponatremia, improved --Acute renal failure; vasomotor nephropathy, resolved Disposition: DC/[facility]-03 SNF [facility] Time spent for discharge: 32 min Core Measure Documentation - Palliative Care Palliative Care/ Comfort Measures: Not Applicable - Core Measures Any of the following diagnoses?: none Exam - Constitutional Vitals: Temp Pulse Resp BP Pulse Ox 98.7 F 94 H 20 120/72 98 05/18/17 11:46 05/18/17 11:46 05/18/17 11:46 05/18/17 11:46 05/18/17 11:46 General appearance: Present: no acute distress, well-nourished, obese - EENT Eyes: Present: PERRL, EOM intact - Neck Neck: Present: supple, normal ROM - Respiratory Respiratory effort: normal Respiratory: bilateral: diminished, negative: rales, rhonchi, wheezing - Cardiovascular Rhythm: regular Heart Sounds: Present: S1 & S2 - Extremities Extremities: no ischemia, No edema Peripheral Pulses: within normal limits - Abdominal General gastrointestinal: Present: soft, non-tender, non-distended, normal bowel sounds - Integumentary Integumentary: Present: clear, warm - Musculoskeletal Musculoskeletal: strength equal bilaterally, generalized weakness - Psychiatric Psychiatric: appropriate mood/affect, cooperative - Neurologic Neurologic: moves all extremities Plan Activity: advance as tolerated, fall precautions Diet: other (PEG feeds per protocol) Wound: per wound nurse instructions Special Instructions: physical therapy Additional Instructions: Aspiration precautions. Follow GI if any PEG problems Follow up with: PRIMARY CARE, [Primary Care Provider] - 3-5 Days
== END 2017-05-18 15:51 | disposition home or self-care (01) | DRG 871 ==
LOC: ED 15:46 → CC1 18:47 → 4A 05-12 22:23
PROVIDERS: ADMIT Internal Medicine; ATTEND Internal Medicine
PROC: 02HV33Z Insertion of Infusion Device into Superior Vena Cava, Percutaneous Approach (ICD-10-PCS; 2017-05-07)
PROC: 4A033R1 Measurement of Arterial Saturation, Peripheral, Percutaneous Approach (ICD-10-PCS; 2017-05-08)
PROC: 0DH63UZ Insertion of Feeding Device into Stomach, Percutaneous Approach (ICD-10-PCS; principal; 2017-05-17)
PROC: 3E0G76Z Introduction of Nutritional Substance into Upper GI, Via Natural or Artificial Opening (ICD-10-PCS; 2017-05-17)
DX: A41.9 Sepsis, unspecified organism (principal); G93.41 Metabolic encephalopathy; N17.0 Acute kidney failure with tubular necrosis; R65.21 Severe sepsis with septic shock; E87.0 Hyperosmolality and hypernatremia; N39.0 Urinary tract infection, site not specified; M62.82 Rhabdomyolysis; I95.9 Hypotension, unspecified; E86.0 Dehydration; R13.10 Dysphagia, unspecified; D69.6 Thrombocytopenia, unspecified; R79.89 Other specified abnormal findings of blood chemistry; E87.8 Other disorders of electrolyte and fluid balance, not elsewhere classified; F03.90 Unspecified dementia, unspecified severity, without behavioral disturbance, psychotic disturbance, mood disturbance, and anxiety; G47.30 Sleep apnea, unspecified; E11.51 Type 2 diabetes mellitus with diabetic peripheral angiopathy without gangrene; F32.9 Major depressive disorder, single episode, unspecified; E66.9 Obesity, unspecified; Z79.82 Long term (current) use of aspirin; Z79.899 Other long term (current) drug therapy; Z79.4 Long term (current) use of insulin; Z68.31 Body mass index [BMI] 31.0-31.9, adult
CPT/HCPCS: 36415; 36600; 70450; 71010; 74000; 80048; 80053; 80061; 80074; 81001; 82140; 82150; 82435; 82550; 82553; 82803; 82962; 83735; 83880; 84132; 84295; 84484; 85025; 85027; 85610; 85730; 87040; 87076; 87086; 87186; 93005; 93010; 96374; 99292; G8996-GN; G8997-GN; J0690; J0696; J1644; J1815; J1940; J2060; J2543; J2704; J3370; J7030; J7040; J7070